=== PATIENT | female | born 1945 | race Caucasian/White ===

== ENCOUNTER → 2016-08-28 | Outpatient (CLI) | payer OTHER ==
[~2016-08-28] MED LIST: ADVIN25/60 INH; ALEN1TAB21 PO; ARM1 PO; ESCI1TAB10 PO; IPRA1AER2 INH
[2016-08-28 17:23] LABS: HEMATOCRIT 50.5 % (37-47); MEAN CELL VOLUME 100.4 fL (80-100); MEAN CORPUSCULAR HEMOGLOBIN 33.6 pg (25-34); MEAN CORPUSCULAR HGB CONC 33.5 g/dl (32-36); MEAN PLATELET VOLUME 11.5 fL (7.4-10.4); PLATELET COUNT 192 K/uL (130-400); RED BLOOD COUNT 5.03 M/uL (4.2-5.4); WHITE BLOOD COUNT 9.64 K/uL (4.8-10.8)
[2016-08-28 18:07] LABS: ALKALINE PHOSPHATASE 78 U/L (45-117); ALT/SGPT 44 U/L (12-78); AST/SGOT 51 U/L (15-37); BLOOD UREA NITROGEN 10 mg/dl (7-18); BUN/CREATININE RATIO 13.9 (10-20); CALCIUM 9.2 mg/dl (8.5-10.1); CARBON DIOXIDE 31 mmol/L (21-32); CHLORIDE 106 mmol/L (98-107); CREATININE 0.72 mg/dl (0.60-1.20); GLUCOSE 116 mg/dl (70-99); POTASSIUM 4.5 mmol/L (3.5-5.1); SODIUM 142 mmol/L (136-145)
[2016-08-28 18:13] LABS: ALB/GLOB RATIO 0.9 (0.9-2); CHOLESTEROL 205 mg/dl (0-200); CHOLESTEROL/HDL RATIO 3.4; HDL CHOLESTEROL 61 mg/dl; LDL CHOLESTEROL CALCULATED 112 mg/dl; TRIGLYCERIDES 158 mg/dl (0-150); VERY LOW DENSITY LIPOPROT CALC 32 mg/dl
== END | disposition home or self-care (01) ==
LOC: C.LABPVFM 14:52
PROVIDERS: ATTEND Family Medicine
DX: C50.919 Malignant neoplasm of unspecified site of unspecified female breast (principal); I10 Essential (primary) hypertension

== ENCOUNTER → 2016-08-29 | Outpatient (CLI) | payer OTHER ==
--- NOTE | 2016-08-29 10:51 | DIAGNOSTIC IMAGING REPORT ---
CHEST 2 VIEWS ROUTINE CLINICAL HISTORY: BREAST CA dyspnea COMPARISON STUDY: 05/14/2014 FINDINGS: Chronic elevation left hemidiaphragm. Mild stable cardiomegaly. Lungs are considered clear. IMPRESSION: Chronic change. No acute process. Electronically signed by: Rickey Boateng M.D. 08/29/2016 10:49 AM Dictated Date/Time: 08/29/2016 10:48 AM
== END | disposition home or self-care (01) ==
LOC: C.RAD 10:33
PROVIDERS: ATTEND Nurse Practitioner Family
DX: C50.919 Malignant neoplasm of unspecified site of unspecified female breast (principal); R73.09 Other abnormal glucose; D75.1 Secondary polycythemia

== ENCOUNTER → 2016-08-29 | Outpatient (CLI) | payer OTHER ==
[2016-08-29 18:24] LABS: TOTAL IRON BINDING CAPACITY 290 mcg/dl (250-450)
[2016-08-30 06:04] LABS: ESTIMATED AVERAGE GLUCOSE 111 mg/dl; HA1C FLAG Normal (Normal)
--- NOTE | 2016-09-12 10:36 | CODING QUERY MEDICAL NECESSITY ---
CQSUPPORTING DIAGNOSIS NEEDED A supporting diagnosis is required for the test/procedure performed on this patient in order for us to be reimbursed by the patient's insurance. Please provide a supporting diagnosis for the following test/procedure listed below next to the test name along with your signature. *If there is no additional diagnosis for this patient that would support the following test/procedure please document that below next to the test/procedure. Test(s)/Procedure(s) that require a supporting diagnosis: DOS 08/29/16 VITAMIN B12 Provider Signature: Date: Thank you Gabriela Ramos [facility] [employer] Once completed, please kindly fax back to [phone] For questions please call [phone]
== END | disposition home or self-care (01) ==
LOC: C.LABPVFM 14:38
PROVIDERS: ATTEND Family Medicine
DX: R73.09 Other abnormal glucose (principal); D75.1 Secondary polycythemia

== ENCOUNTER → 2016-11-30 | Outpatient (CLI) | payer OTHER ==
[~2016-11-30] MED LIST changes: +OPTIRAY 320 IV PRN
--- NOTE | 2016-11-30 09:17 | DIAGNOSTIC IMAGING REPORT ---
CT OF THE CHEST WITH IV CONTRAST CLINICAL HISTORY: Breast carcinoma COMPARISON STUDY: 10/05/2015 TECHNIQUE: Following the IV administration of 66 mL of Optiray-320, CT of the thorax was performed from the thoracic inlet to the lung bases. Images are reviewed in the axial, sagittal, and coronal planes. IV contrast was administered. There is a small contrast infiltrate.. A dose lowering technique was utilized adhering to the principles of ALARA. CT DOSE: 595.73 mGycm FINDINGS: Thyroid: Several right-sided thyroid nodules are visualized the largest of which measures 8 mm. Thoracic aorta: The thoracic aorta is normal in course and caliber, noting standard 3-vessel arch anatomy. No aneurysm or dissection is seen. Pulmonary vasculature: The pulmonary trunk is normal in caliber. There are no central filling defects identified to suggest pulmonary embolus. Note that this examination was not protocoled for the evaluation of pulmonary emboli. HEART: The heart is mildly enlarged. Lungs and pleural spaces: No pleural effusions are visualized. There is pulmonary emphysema. There are lingular atelectatic changes. There are increased subpleural markings within the left upper lobe possibly secondary to prior ration therapy. There is slight interstitial subpleural prominence within the right middle lobe. There is marked elevation left hemidiaphragm. Mediastinum: There is no mediastinal lymphadenopathy. Whit: Clear. Axilla: Clear. Upper abdomen: There is hepatic steatosis. There is a 43 mm left renal cyst. Skeletal structures: There are no lytic or blastic osseous lesions. IMPRESSION: Persistent elevation of the left hemidiaphragm. No evidence of intrathoracic metastasis. Electronically signed by: Macario Granados M.D. 11/30/2016 9:16 AM Dictated Date/Time: 11/30/2016 9:11 AM
== END | disposition home or self-care (01) ==
LOC: C.CTS 08:29
PROVIDERS: ATTEND Internal Medicine Hematology & Oncology
DX: C50.919 Malignant neoplasm of unspecified site of unspecified female breast (principal)

== ENCOUNTER 2017-04-09 14:32 | Inpatient (IN) | payer OTHER ==
[~2017-04-09] VITALS: Ht 157.5 cm; Wt 76.0 kg
[~2017-04-09 14:32] MED LIST changes: -OPTIRAY 320 IV PRN
[2017-04-09] MEDS ORDERED: SODIUM CHLORIDE 0.9% 1000ML 1,000 ML IV STA (14:51)
[2017-04-09] MEDS ORDERED: KETOROLAC TROMETHAMINE 30 MG/ML VIAL IV STA (14:51)
[2017-04-09 15:17] LABS: BASO % 0.3 %; BASO ABS # 0.04 K/uL (0-0.2); COMPLETE YES; EOS % 0.2 %; HEMATOCRIT 54.2 % (37-47); LYMPH % 8.3 %; LYMPH ABS # 1.19 K/uL (1.2-3.4); MEAN CELL VOLUME 97.5 fL (80-100); MEAN CORPUSCULAR HEMOGLOBIN 34.2 pg (25-34); MEAN CORPUSCULAR HGB CONC 35.1 g/dl (32-36); MONO % 9.4 %; NEUT % 80.8 %; PLATELET COUNT 149 K/uL (130-400); RED BLOOD COUNT 5.56 M/uL (4.2-5.4); WHITE BLOOD COUNT 14.33 K/uL (4.8-10.8)
[2017-04-09] MEDS ORDERED: ALEN70TA2 PO (15:27)
[2017-04-09 15:36] LABS: BUN/CREATININE RATIO 20.5 (10-20); CALCIUM 10.3 mg/dl (8.5-10.1); CREATININE 0.85 mg/dl (0.60-1.20); POTASSIUM 4.2 mmol/L (3.5-5.1)
--- NOTE | 2017-04-09 15:41 | DIAGNOSTIC IMAGING REPORT ---
HEAD WITHOUT CONTRAST (CT) CLINICAL HISTORY: 71 years-old Female presenting with fall. TECHNIQUE: Multidetector CT imaging of the head was performed without the use of intravenous contrast. IV contrast: None. A dose lowering technique was used consistent with the principles of ALARA (as low as reasonably achievable). COMPARISON: 02/17/2015. CT DOSE (mGy.cm): The estimated cumulative dose is 1660.55. FINDINGS: Recreational Therapist topogram: Unremarkable. Ventricles and sulci normal in size. Brain parenchyma normal in appearance with preserved fallon-white differentiation. No mass effect or midline shift. No hemorrhage or acute territorial infarct. No extra-axial fluid collection. Paranasal sinuses and mastoid air cells clear. Calvarium intact. IMPRESSION: 1. No acute intracranial abnormality. Electronically signed by: Wilfredo Hinkle M.D. 04/09/2017 3:40 PM Dictated Date/Time: 04/09/2017 3:39 PM
--- NOTE | 2017-04-09 15:46 | DIAGNOSTIC IMAGING REPORT ---
LUMBAR SPINE WITHOUT CLINICAL HISTORY: 71 years-old Female presenting with fall 2 days ago, increasing back pain. TECHNIQUE: Multidetector CT of the lumbar spine was performed without the use of intravenous contrast. IV contrast: None. A dose lowering technique was used consistent with the principles of ALARA (as low as reasonably achievable). COMPARISON: None. CT DOSE (mGy.cm): The estimated cumulative dose is 1660.55 mGy.cm. FINDINGS: Home Care Consultant topogram: Unremarkable. Osteopenia. Normal lumbar lordosis. Vertebral bodies maintain normal height and alignment. Height loss mild intervertebral disc height loss at L4-5 and L5-S1, where there are disc bulges. Disc bulge also noted at L2-3 and L3-4. No significant neural foraminal or spinal canal narrowing. Facet arthropathy noted in the lower lumbar spine. Impression deformity of T12 with abnormal concavity of both the superior and inferior endplate. Irregularity of the cortex along the anterior aspect of the superior endplate suspicious for a fracture. The presumed fracture plane does not extend to the posterior elements. No retropulsion of fracture fragments. Paraspinal soft tissues remarkable for atherosclerosis of the normal caliber abdominal aorta. IMPRESSION: 1. Fracture deformity of T12 in the setting of osteopenia. No retropulsion of fracture fragments. This is age indeterminate but suspected to be acute. Correlate for point tenderness. 2. Multilevel degenerative changes of lumbar spine without CT evidence of neural foraminal or spinal canal narrowing. Electronically signed by: Wilfredo Hinkle M.D. 04/09/2017 3:45 PM Dictated Date/Time: 04/09/2017 3:41 PM
--- NOTE | 2017-04-09 15:51 | DIAGNOSTIC IMAGING REPORT ---
PELVIS 1 OR 2 VIEW ROUTINE CLINICAL HISTORY: 71 years-old Female presenting with fall. TECHNIQUE: Single frontal view of the pelvis was obtained. COMPARISON: None. FINDINGS: Bony pelvis intact. Pubic symphysis and sacroiliac joints congruent. Hip joints congruent. No advanced degenerative change. Lower lumbar spine within normal limits. IMPRESSION: No acute osseous injury of the pelvis. Electronically signed by: Wilfredo Hinkle M.D. 04/09/2017 3:50 PM Dictated Date/Time: 04/09/2017 3:49 PM
--- NOTE | 2017-04-09 15:51 | DIAGNOSTIC IMAGING REPORT ---
CHEST ONE VIEW PORTABLE CLINICAL HISTORY: 71 years-old Female presenting with fall, history of breast carcinoma. TECHNIQUE: Portable upright AP view of the chest was obtained. COMPARISON: 08/29/[address] from 11/30/2016. FINDINGS: Vertex silhouette enlarged, unchanged. Chronic elevation of the left hemidiaphragm. Nodular opacities in the right lung increased from prior. No large pleural effusion or pneumothorax. Degenerative changes of the right glenohumeral joint. Upper abdomen normal. IMPRESSION: 1. Nodular opacities in the right lung could represent prominent pulmonary vasculature versus multifocal nodules. This is somewhat suspicious given the history of breast cancer. 2. Chronic elevation of the left hemidiaphragm. 3. Cardiomegaly. Electronically signed by: Wilfredo Hinkle M.D. 04/09/2017 3:49 PM Dictated Date/Time: 04/09/2017 3:47 PM
[2017-04-09] MEDS ORDERED: OXYCODONE/ACETAMINOPHEN 5-325 TAB PO STA (16:18)
[2017-04-09] MEDS ORDERED: POLYETHYLENE (MIRALAX) 17 GM PACK PO PRN (18:15)
[2017-04-09] MEDS ORDERED: IPRATROPIUM BROMIDE/ALBUTEROL respimat INH INH PRN (18:15)
[2017-04-09] MEDS ORDERED: MAGNESIUM HYDROXIDE SUSP 30 ML UDC PO PRN (18:15)
[2017-04-09] MEDS ORDERED: ONDANSETRON INJ 2 MG/ML 2 ML VIAL IV PRN (18:15)
[2017-04-09] MEDS ORDERED: ACETAMINOPHEN 325 MG TAB PO PRN (18:15)
--- NOTE | 2017-04-09 18:19 | History and Physical ---
History & Physical Date & Time of Service: Apr 09, 2017 at 18:16 Chief Complaint: Back Pain From Fall Primary Care Physician: Wilfredo Kaplan M.D. History of Present Illness Source: patient Ms. 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 Patient reports she was walking to her bed and thought she was leaning against the foot of the bed but instead it was a shoe rack and she fell over hitting her left side. She continues to experience low back pain and is finding it difficult to ambulate. Due to this pain she has barely eaten over the past 2 days. She states she does have a cane that she ambulates with when outside the home but typically does not need to use this at home. She did strike the left side of her head but denies loss of consciousness. She states she was not on the floor very long. She denies any recent illnesses, dizziness/ lightheadedness, or any other pains/injuries. Imaging supports a T12 fracture. She follows with her PCP and has had DEXA scans in the past. Past Medical/Surgical History 1. 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 Breast CA S/P B/L Simple Mastectomy 3. HTN 4. Secondary Polycythemia Family History Hypertension Social History Smoking Status: Former Smoker Smokeless Tobacco Use: No Alcohol Use: none Drug Use: none Marital Status: Occupational Status: retired Multi-Drug Resistant Organisms History of MDRO: No Allergies Coded Allergies: No Known Allergies (Verified , 04/09/17) Home Medications Scheduled Alendronate Sodium (Fosamax), 70 MG PO WK Anastrozole (Anastrozole), 1 TAB PO DAILY Escitalopram Oxalate (Lexapro), 30 MG PO DAILY Fluticasone Prop/Salmeterol (Advair Diskus 250/50 60 Dose), 1 PUFF INH BID Scheduled PRN Ipratropium-Albuterol (Combivent Respimat), 2 PUFFS INH Q4 PRN for SOB/Wheezing Review of Systems Constitutional: No fever, No chills, No weakness ENT: No nasal symptoms, No sore throat Respiratory: No shortness of breath Cardiovascular: No chest pain Abdomen: No pain, No nausea, No vomiting, No diarrhea, No constipation Musculoskeletal: + joint pain (low back pain), No calf pain Genitourinary - Female: No dysuria Neurologic: + balance problems Hematologic / Lymphatic: No abnormal bleeding/bruising Integumentary: No rash Physical Exam Vital Signs Date Time Temp Pulse Resp B/P (MAP) Pulse Ox O2 Delivery O2 Flow Rate FiO2 04/09/17 17:44 138/76 04/09/17 14:35 36.6 95 22 96 Room Air General Appearance: WD/WN, no apparent distress Head: normocephalic, atraumatic Eyes: sclerae normal ENT: hearing grossly normal Neck: supple, no JVD, trachea midline Respiratory/Chest: lungs clear, normal breath sounds, no respiratory distress, no accessory muscle use Cardiovascular: regular rate, rhythm, no gallop, no murmur Abdomen/GI: normal bowel sounds, non tender, soft Extremities/Musculoskelatal: no calf tenderness, no pedal edema Neurologic/Psych: alert, oriented x 3 Skin: normal color, warm/dry Diagnostics Laboratory Results Results Past 24 Hours Test 04/09/17 15:05 Range/Units White Blood Count 14.33 4.8-10.8 K/uL Red Blood Count 5.56 4.2-5.4 M/uL Hemoglobin 19.0 12.0-16.0 g/dL Hematocrit 54.2 37-47 % Mean Corpuscular Volume 97.5 80-100 fL Mean Corpuscular Hemoglobin 34.2 25-34 pg Mean Corpuscular Hemoglobin Concent 35.1 32-36 g/dl Platelet Count 149 130-400 K/uL Mean Platelet Volume 11.0 7.4-10.4 fL Neutrophils (%) (Auto) 80.8 % Lymphocytes (%) (Auto) 8.3 % Monocytes (%) (Auto) 9.4 % Eosinophils (%) (Auto) 0.2 % Basophils (%) (Auto) 0.3 % Neutrophils # (Auto) 11.59 1.4-6.5 K/uL Lymphocytes # (Auto) 1.19 1.2-3.4 K/uL Monocytes # (Auto) 1.34 0.11-0.59 K/uL Eosinophils # (Auto) 0.03 0-0.5 K/uL Basophils # (Auto) 0.04 0-0.2 K/uL RDW Standard Deviation 47.8 36.4-46.3 fL RDW Coefficient of Variation 13.5 11.5-14.5 % Immature Granulocyte % (Auto) 1.0 % Immature Granulocyte # (Auto) 0.14 0.00-0.02 K/uL Sodium Level 132 136-145 mmol/L Potassium Level 4.2 3.5-5.1 mmol/L Chloride Level 98 98-107 mmol/L Carbon Dioxide Level 30 21-32 mmol/L Anion Gap 4.0 3-11 mmol/L Blood Urea Nitrogen 18 7-18 mg/dl Creatinine 0.85 0.60-1.20 mg/dl Est Creatinine Clear Calc Drug Dose 58.8 ml/min Estimated GFR () 80.5 Estimated GFR (Non- 69.4 BUN/Creatinine Ratio 20.5 10-20 Random Glucose 102 70-99 mg/dl Calcium Level 10.3 8.5-10.1 mg/dl Diagnostic Radiology LUMBAR SPINE WITHOUT FINDINGS: Pick Pulling Machine Tender topogram: Unremarkable. Osteopenia. Normal lumbar lordosis. Vertebral bodies maintain normal height and alignment. Height loss mild intervertebral disc height loss at L4-5 and L5-S1, where there are disc bulges. Disc bulge also noted at L2-3 and L3-4. No significant neural foraminal or spinal canal narrowing. Facet arthropathy noted in the lower lumbar spine. Impression deformity of T12 with abnormal concavity of both the superior and inferior endplate. Irregularity of the cortex along the anterior aspect of the superior endplate suspicious for a fracture. The presumed fracture plane does not extend to the posterior elements. No retropulsion of fracture fragments. Paraspinal soft tissues remarkable for atherosclerosis of the normal caliber abdominal aorta. IMPRESSION: 1. Fracture deformity of T12 in the setting of osteopenia. No retropulsion of fracture fragments. This is age indeterminate but suspected to be acute. Correlate for point tenderness. 2. Multilevel degenerative changes of lumbar spine without CT evidence of neural foraminal or spinal canal narrowing. Impression Assessment and Plan Ms. 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: - Advair 1 puff BID and Combivent 2 puffs Q4H PRN H/O Breast CA S/P B/L Simple Mastectomy - CXR with nodular opacities - review of outpatient records show she had a CT in Nov 2016 that notes the thyroid nodules and did mention R lobe prominences - recommend F/U CXR - Arimidex 1 mg daily DVT Prophylaxis: Heparin 5000 units Q12H Code Status: FULL RESUSCITATION Disposition: - PT/OT evaluations - patient's first recommendation would be to go to [facility] - phlebotomy services technician - appreciate assistance with rehabilitation placement I personally interviewed and examined the patient. I agree with history of present illness and physical exam mentioned above, I also performed my own history taking and examination. Past medical history and review of system has been obtained by myself I reviewed all pertinent labs and studies Reviewed current medications I discussed and formulated of the assessment and plan mentioned above. Please refer to the Summary mentioned below. Agree With Miss. Aguilar's plan General Appearance: not in acute distress Eyes: normal Sclerae, extraocular muscle intact ENT: hearing grossly normal Neck: supple Respiratory/Chest: normal air entry bilateral ,no severe respiratory distress, no accessory muscle use, currently she is comfortable on room air Cardiovascular: regular rate, rhythm, no murmur Abdomen: non tender, soft, no masses Extremities: no edema Neurologic/Psychiatric: Awake alert oriented times place and person moves all extremities sensation intact cranial nerves II-12 appear to be intact Skin: normal color, warm/dry, no rash 71 years old female who had a mechanical fall today resulted in T12 fracture with back pain On presentation she was found to have leukocytosis, elevated hemoglobin and elevated calcium parameters indicating dehydration Other than that she is asymptomatic except for back pain Assessment mechanical fall T12 fracture intractable lower back pain osteopenia plan: continune supportive care pain management gentle IVF hydration (recheck calcium and and Hgb in am) ortho consult for potential vertebroplasty PT/OT after ortho clearance Vit D supplement Pina Ellis [facility], [facility] Level of Care Med/Surg Resuscitation Status FULL RESUSCITATION VTE Prophylaxis VTE Risk Assessment Done? Y/N: Yes Risk Level: Moderate Given or contraindicated: T.E.D. Stockings, SCD's
[2017-04-09] MEDS ORDERED: KETOROLAC TROMETHAMINE 15 MG/ML VIAL IV PRN (18:30)
[2017-04-09] MEDS ORDERED: MoRPHine SULFATE 2 MG/ML CARP IV PRN (18:30)
[2017-04-09] MEDS ORDERED: SODIUM CHLORIDE 0.9% 1000ML 1,000 ML IV SCH (18:45)
[2017-04-09] MEDS ORDERED: TRAMADOL HCL 50 MG TAB PO PRN (19:00)
[2017-04-09] MEDS ORDERED: ERGOCALCIFEROL 50,000 INTER.UNIT CAP PO SCH (19:00)
[2017-04-09 19:35] VITALS: BP 119/61; PULSE 75; TEMP 36.8; O2SAT 95; Ht 157.5 cm; Wt 76.0 kg
[2017-04-09 21:02] LABS: PARTIAL THROMBOPLASTIN RATIO 1.1; PROTHROMBIN TIME (PATIENT) 10.6 SECONDS (9.0-12.0)
[2017-04-09] MEDS: FLUTICASONE/SALMETEROL 250/50 (ADVAIR) 14 PUFF/1 INHALER INH SCH (21:32)
[2017-04-09 21:47] LABS: URINE APPEARANCE CLEAR (CLEAR); URINE COLOR DK YELLOW; URINE EPITHELIAL CELL AUTO >30 /lpf (0-5); URINE NITRITE NEG (NEG); URINE SPECIFIC GRAVITY 1.021 (1.000-1.030); UROBILINOGEN NEG (NEG); ZZUR CULT IF INDIC CLEAN CATCH NO
[2017-04-09 21:48] LABS: MANUAL MICROSCOPIC REQUIRED? NO; REVIEW REQ? YES; URINE BILIRUBIN NEG (NEG)
[2017-04-09] MEDS: HEPARIN SOD 5000 UNIT/0.5 ML CARP SQ SCH (22:16)
[2017-04-09] MEDS: OXYCODONE/ACETAMINOPHEN 5-325 TAB PO PRN (22:25)
[2017-04-09 23:20] VITALS: BP 132/70; PULSE 74; TEMP 36.8; O2SAT 96
[2017-04-10] VITALS (7 sets, daily range): BP systolic 78–137; BP diastolic 50–91; PULSE 74–80; TEMP 36.6–36.8; O2SAT 86–96
[2017-04-10 06:04] LABS: BASO % 0.5 %; BASO ABS # 0.06 K/uL (0-0.2); COMPLETE YES; EOS % 2.6 %; HEMATOCRIT 48.6 % (37-47); LYMPH % 23.5 %; LYMPH ABS # 2.76 K/uL (1.2-3.4); MEAN CORPUSCULAR HEMOGLOBIN 33.5 pg (25-34); MEAN CORPUSCULAR HGB CONC 33.1 g/dl (32-36); MEAN PLATELET VOLUME 11.1 fL (7.4-10.4); MONO % 8.1 %; NEUT % 64.3 %; PLATELET COUNT 136 K/uL (130-400); RED BLOOD COUNT 4.81 M/uL (4.2-5.4); WHITE BLOOD COUNT 11.76 K/uL (4.8-10.8)
[2017-04-10 06:19] LABS: ALB/GLOB RATIO 0.8 (0.9-2); BUN/CREATININE RATIO 28.1 (10-20); CALCIUM 8.7 mg/dl (8.5-10.1); CREATININE 0.99 mg/dl (0.60-1.20); POTASSIUM 3.6 mmol/L (3.5-5.1)
[2017-04-10] MEDS: OXYCODONE/ACETAMINOPHEN 5-325 TAB PO PRN ×2 (07:33→15:35)
[2017-04-10] MEDS: ANASTROZOLE 1 MG TAB PO SCH (08:51)
[2017-04-10] MEDS: ESCITALOPRAM OXALATE 20 MG TAB PO SCH (08:51)
[2017-04-10] MEDS: FLUTICASONE/SALMETEROL 250/50 (ADVAIR) 14 PUFF/1 INHALER INH SCH ×2 (08:52→20:48)
[2017-04-10] MEDS: CALCIUM CARBONATE 500 MG CHEWABLE PO SCH (08:52)
[2017-04-10] MEDS: HEPARIN SOD 5000 UNIT/0.5 ML CARP SQ SCH ×2 (09:56→21:33)
--- NOTE | 2017-04-10 13:08 | DIAGNOSTIC IMAGING REPORT ---
CHEST ONE VIEW PORTABLE CLINICAL HISTORY: hypoxia dyspnea COMPARISON STUDY: 04/09/2017 FINDINGS: Chronic elevation left hemidiaphragm unchanged. Moderate stable cardiomegaly. Mild platelike atelectasis left base unchanged. Slight prominence pulmonary vasculature. Subtle nodularity right hemithorax is similar. IMPRESSION: Chronic change. Stable cardiomegaly. Mild pulmonary vascular congestion. The above report was generated using voice recognition software. It may contain grammatical, syntax or spelling errors. Electronically signed by: Rickey Boateng M.D. 04/10/2017 1:07 PM Dictated Date/Time: 04/10/2017 1:06 PM
[2017-04-10] MEDS: ALUMINUM/MAGNESIUM/SIMETH (MAALOX MAX) 30 ML UDC PO PRN (14:26)
--- NOTE | 2017-04-10 14:42 | Hospitalist Progress Note ---
Hospitalist Progress Note Date of Service Apr 10, 2017. (Daisy Puente ., CAROLYNC) Subjective Pt evaluation today including: conversation w/ patient, physical exam, chart review, lab review, review of studies, review of inpatient medication list Pain: 5/10 dull back pain PO Intake: Tolerating PO diet Voiding: no voiding problems The patient complains of a 5/10 dull back pain but is otherwise feeling well. The pain stays right in her back and does not radiate. The pain is exacerbated by certain movements, changes in position and palpation. She denies any numbness/tingling or incontinence. The patient denies fevers, chills, sweats, chest pain, palpitations, claudication, cough, wheezing, shortness of breath, nausea, vomiting, abdominal pain, dysuria, hematuria, urinary retention, paralysis, weakness, numbness and tingling. Additional Comments: See HPI for pertinent positives and negatives. All other systems reviewed and negative. (Daisy Puente PA-C) Objective Vital Signs Date Time Temp Pulse Resp B/P (MAP) Pulse Ox O2 Delivery O2 Flow Rate FiO2 04/10/17 13:28 93 04/10/17 08:53 93 Nasal Cannula 3.0 04/10/17 08:50 86 Room Air 04/10/17 07:20 Nasal Cannula 2.0 04/10/17 07:11 36.6 74 20 113/61 (78) 96 Nasal Cannula 2.0 04/09/17 23:40 Nasal Cannula 2.0 04/09/17 23:20 36.8 74 16 132/70 (90) 96 Nasal Cannula 2.0 04/09/17 19:35 92 20 129/70 96 04/09/17 19:35 95 Nasal Cannula 2.0 04/09/17 19:35 36.8 75 19 119/61 (80) 95 Nasal Cannula 2.0 04/09/17 17:44 138/76 04/09/17 14:35 36.6 95 22 96 Room Air (Daisy Puente ., CAROLYNC) Physical Exam Notes: General appearance: +Obese. Well-developed, well-nourished, no apparent distress Head: Normocephalic, atraumatic Eyes: Normal inspection, PERRL, EOMI ENT: Normal ENT inspection, hearing grossly normal, pharynx normal Neck: Supple, no JVD, trachea midline Respiratory/Chest: +Absent lung sounds left base--pt has chronically elevated left hemidiaphragm. Lungs clear to auscultation, normal breath sounds, no respiratory distress Cardiovascular: Regular rate & rhythm, no gallop, no murmur Abdomen/GI: Normal bowel sounds, non-tender, soft Extremities/Musculoskeletal: +Spinous process at T12 TTP, milder paraspinal tenderness. Normal inspection, no calf tenderness, no pedal edema Neurological/Psych: Alert, normal mood/affect, oriented x 3 Skin: Normal color, warm/dry, no rash (Daisy Puente, AQUILES) Laboratory Results Last 24 Hours Test 04/09/17 15:05 04/09/17 21:28 04/10/17 05:16 White Blood Count 14.33 K/uL 11.76 K/uL Red Blood Count 5.56 M/uL 4.81 M/uL Hemoglobin 19.0 g/dL 16.1 g/dL Hematocrit 54.2 % 48.6 % Mean Corpuscular Volume 97.5 fL 101.0 fL Mean Corpuscular Hemoglobin 34.2 pg 33.5 pg Mean Corpuscular Hemoglobin Concent 35.1 g/dl 33.1 g/dl Platelet Count 149 K/uL 136 K/uL Mean Platelet Volume 11.0 fL 11.1 fL Neutrophils (%) (Auto) 80.8 % 64.3 % Lymphocytes (%) (Auto) 8.3 % 23.5 % Monocytes (%) (Auto) 9.4 % 8.1 % Eosinophils (%) (Auto) 0.2 % 2.6 % Basophils (%) (Auto) 0.3 % 0.5 % Neutrophils # (Auto) 11.59 K/uL 7.56 K/uL Lymphocytes # (Auto) 1.19 K/uL 2.76 K/uL Monocytes # (Auto) 1.34 K/uL 0.95 K/uL Eosinophils # (Auto) 0.03 K/uL 0.31 K/uL Basophils # (Auto) 0.04 K/uL 0.06 K/uL RDW Standard Deviation 47.8 fL 50.5 fL RDW Coefficient of Variation 13.5 % 13.6 % Immature Granulocyte % (Auto) 1.0 % 1.0 % Immature Granulocyte # (Auto) 0.14 K/uL 0.12 K/uL Prothrombin Time 10.6 SECONDS Prothromb Time International Ratio 1.0 Activated Partial Thromboplast Time 27.6 SECONDS Partial Thromboplastin Ratio 1.1 Sodium Level 132 mmol/L 135 mmol/L Potassium Level 4.2 mmol/L 3.6 mmol/L Chloride Level 98 mmol/L 100 mmol/L Carbon Dioxide Level 30 mmol/L 29 mmol/L Anion Gap 4.0 mmol/L 6.0 mmol/L Blood Urea Nitrogen 18 mg/dl 28 mg/dl Creatinine 0.85 mg/dl 0.99 mg/dl Est Creatinine Clear Calc Drug Dose 58.8 ml/min 50.5 ml/min Estimated GFR () 80.5 66.9 Estimated GFR (Non- 69.4 57.7 BUN/Creatinine Ratio 20.5 28.1 Random Glucose 102 mg/dl 96 mg/dl Calcium Level 10.3 mg/dl 8.7 mg/dl Urine Color DK YELLOW Urine Appearance CLEAR Urine pH 5.0 Urine Specific [place] 1.021 Urine Protein TRACE Urine Glucose (UA) NEG Urine Ketones TRACE Urine Occult Blood NEG Urine Nitrite NEG Urine Bilirubin NEG Urine Urobilinogen NEG Urine Leukocyte Esterase SMALL Urine WBC (Auto) 5-10 /hpf Urine RBC (Auto) 0-4 /hpf Urine Hyaline Casts (Auto) 5-10 /lpf Urine Epithelial Cells (Auto) >30 /lpf Urine Bacteria (Auto) NEG Urine Pathogenic Casts /lpf Magnesium Level 2.0 mg/dl Total Bilirubin 1.0 mg/dl Aspartate Amino Transf (AST/SGOT) 36 U/L Alanine Aminotransferase (ALT/SGPT) 32 U/L Alkaline Phosphatase 71 U/L Total Protein 6.8 gm/dl Albumin 3.0 gm/dl Globulin 3.8 gm/dl Albumin/Globulin Ratio 0.8 (Daisy Puente ., PA-C) Diagnostic Results Reviewed the following studies and agree with interpretation as follows: CHEST ONE VIEW PORTABLE CLINICAL HISTORY: hypoxia dyspnea COMPARISON STUDY: 04/09/2017 FINDINGS: Chronic elevation left hemidiaphragm unchanged. Moderate stable cardiomegaly. Mild platelike atelectasis left base unchanged. Slight prominence pulmonary vasculature. Subtle nodularity right hemithorax is similar. IMPRESSION: Chronic change. Stable cardiomegaly. Mild pulmonary vascular congestion. 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 T12 fracture following fall, ambulatory dysfunction--ongoing - Admit to med/surg - Pain management with Ultram, Percocet, and Morphine prn. Pt states pain is manageable, awake/alert - Consult Spine - suspect conservative management but appreciate input, awaiting recs - Consult Orthotics - likely need for back brace - PT/OT evaluate and treat. Recommend rehab, pt's first choice [facility] Hypoxia -Pt down to 86% on room air. Does not wear oxygen at home -Repeat CXR shows mild pulmonary vascular congestion -Pt clinically appears dry, BUN increased from 18 to 28, producing little urine -Give NSS at 80 cc/hr x 1 liter, reassess -Continuous pulse ox Secondary Polycythemia--improving - Patient was unaware of this - was a previous smoker and may be related to Arimidex - Hgb 16 on 04/10, down from 19 Diaphragmatic Paralysis 2/ Radiation Therapy: - Advair 1 puff BID and Combivent 2 puffs Q4H PRN H/O Breast CA S/P B/L Simple Mastectomy - CXR with nodular opacities - review of outpatient records show she had a CT in Nov 2016 that notes the thyroid nodules and did mention R lobe prominences - recommend F/U CXR - Arimidex 1 mg daily DVT Prophylaxis -Heparin 5000 units Q12H Code Status -Level I, FULL RESUSCITATION STATUS Disposition: - Case management following, will need rehab (Daisy Puente ., CAROLYNC) PA Physician Supervision Note: I interviewed and examined the patient. Discussed with Daisy Puente PAC and agree with findings and plan as documented in the note. Any exceptions or clarifications are listed here: None Patient is here with a T12 compression fracture for pain control she did have some episodes of hypoxia and she does have an abnormal chest x-ray with what appears to be a large hiatal hernia with most of her stomach contents in her left chest and her cardiac silhouette being displaced to the right towards her right chest. She appears clinically dry. The patient is aware of her abnormal chest x-rays this been present for some time she is not however had a history of having hypoxic issues with it. Her pain is manageable and orthotics as supplied a Girdle style brace Vitals are stable exam shows her back to be not point tender to exam it is uncomfortable to move her cardiac exam is regular her lungs of decreased breath sounds are absent breath signs of the left side otherwise reasonable movement T12 compression fracture with pain control patient is doing fairly well with occasional use of Percocet patient and family are seeking subacute rehabilitation Documented By: Babar Hernandez (Babar Hernandez M.D.)
[2017-04-10] MEDS ORDERED: SODIUM CHLORIDE 0.9% 1000ML 1,000 ML IV SCH (14:45)
--- NOTE | 2017-04-10 19:47 | EMERGENCY ROOM VISIT NOTE ---
History Report prepared by Alicia: Dane Marinelli Under the Supervision of: Dr. Maxx Kaur D.O. First contact with patient: 14:46 Chief Complaint: FALL Stated Complaint: BACK PAIN FROM FALL History of Present Illness The patient is a 71 year old female who presents to the Emergency Room with complaints of falling 2 days ago due to a loss of balance. The patient reports she fell in her bedroom on the left side of her head. The patient states it is difficult to ambulate due to the low back pain s/p fall. The patient's daughter states the patient has had limited dietary intake. The patient denies headache, loss of consciousness, fevers, chills, shortness of breath, chest pain, and abdominal pain. The patient denies taking any pain medication or blood thinners. Source of History: patient, family Onset: 2 days ago Position: head, back (lower) Timing: constant Modifying Factors (Worsening): movement Associated Symptoms: + back pain, No LOC, No fevers, No chills, No headache , No chest pain, No SOB, No abdominal pain Note: Pt reports limited dietary intake. Review of Systems See HPI for pertinent positives & negatives. A total of 10 systems reviewed and were otherwise negative. 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 (3) Leukocytosis (4) Mechanical Fall (5) T12 Fracture Surgical Problems: (1) H/O lumpectomy (2) H/O mastectomy Family History Hypertension Social History Smoking Status: Former Smoker Drug Use: none Marital Status: Occupation Status: retired Current/Historical Medications Scheduled Alendronate Sodium (Fosamax), 70 MG PO WK Anastrozole (Anastrozole), 1 TAB PO DAILY Escitalopram Oxalate (Lexapro), 30 MG PO DAILY Fluticasone Prop/Salmeterol (Advair Diskus 250/50 60 Dose), 1 PUFF INH BID Scheduled PRN Ipratropium-Albuterol (Combivent Respimat), 2 PUFFS INH Q4 PRN for SOB/Wheezing Allergies Coded Allergies: No Known Allergies (Verified , 04/09/17) Physical Exam Vital Signs Date Time Temp Pulse Resp B/P (MAP) Pulse Ox O2 Delivery O2 Flow Rate FiO2 04/09/17 17:44 138/76 04/09/17 14:35 36.6 95 22 96 Room Air Physical Exam CONSTITUTIONAL/VITAL SIGNS: Reviewed / noted above. GENERAL: Non-toxic in appearance. INTEGUMENTARY: Warm, dry, and [place]. HEAD: Normocephalic. EYES: without scleral icterus or trauma. ENT/OROPHARYNX: clear and moist. LYMPHADENOPATHY/NECK: Is supple without lymphadenopathy or meningismus. RESPIRATORY: Lungs clear and equal. CARDIOVASCULAR: Regular rate and rhythm. GI/ABDOMEN: Soft and nontender. No organomegaly or pulsatile mass. No rebound or guarding. Normal bowel sounds. EXTREMITIES: Warm and well perfused. BACK: No CVA tenderness; low back pain with movement; region of ecchymosis in left lower back. NEUROLOGICAL: Intact without focal deficits. PSYCHIATRIC: normal affect. MUSCULOSKELETAL: Normally developed with good muscle tone. Medical Decision & Procedures ER Provider Diagnostic Interpretation: Radiology results as stated below per my review and radiologist interpretation: LUMBAR SPINE WITHOUT CLINICAL HISTORY: 71 years-old Female presenting with fall 2 days ago, increasing back pain. TECHNIQUE: Multidetector CT of the lumbar spine was performed without the use of intravenous contrast. IV contrast: None. A dose lowering technique was used consistent with the principles of ALARA (as low as reasonably achievable). COMPARISON: None. CT DOSE (mGy.cm): The estimated cumulative dose is 1660.55 mGy.cm. FINDINGS: Fireproof Door Maker topogram: Unremarkable. Osteopenia. Normal lumbar lordosis. Vertebral bodies maintain normal height and alignment. Height loss mild intervertebral disc height loss at L4-5 and L5-S1, where there are disc bulges. Disc bulge also noted at L2-3 and L3-4. No significant neural foraminal or spinal canal narrowing. Facet arthropathy noted in the lower lumbar spine. Impression deformity of T12 with abnormal concavity of both the superior and inferior endplate. Irregularity of the cortex along the anterior aspect of the superior endplate suspicious for a fracture. The presumed fracture plane does not extend to the posterior elements. No retropulsion of fracture fragments. Paraspinal soft tissues remarkable for atherosclerosis of the normal caliber abdominal aorta. IMPRESSION: 1. Fracture deformity of T12 in the setting of osteopenia. No retropulsion of fracture fragments. This is age indeterminate but suspected to be acute. Correlate for point tenderness. 2. Multilevel degenerative changes of lumbar spine without CT evidence of neural foraminal or spinal canal narrowing. Electronically signed by: Wilfredo Hinkle M.D. 04/09/2017 3:45 PM Dictated Date/Time: 04/09/2017 3:41 PM HEAD WITHOUT CONTRAST (CT) CLINICAL HISTORY: 71 years-old Female presenting with fall. TECHNIQUE: Multidetector CT imaging of the head was performed without the use of intravenous contrast. IV contrast: None. A dose lowering technique was used consistent with the principles of ALARA (as low as reasonably achievable). COMPARISON: 02/17/2015. CT DOSE (mGy.cm): The estimated cumulative dose is 1660.55. FINDINGS: Fireproof Door Maker topogram: Unremarkable. Ventricles and sulci normal in size. Brain parenchyma normal in appearance with preserved fallon-white differentiation. No mass effect or midline shift. No hemorrhage or acute territorial infarct. No extra-axial fluid collection. Paranasal sinuses and mastoid air cells clear. Calvarium intact. IMPRESSION: 1. No acute intracranial abnormality. Electronically signed by: Wilfredo Hinkle M.D. 04/09/2017 3:40 PM Dictated Date/Time: 04/09/2017 3:39 PM PELVIS 1 OR 2 VIEW ROUTINE CLINICAL HISTORY: 71 years-old Female presenting with fall. TECHNIQUE: Single frontal view of the pelvis was obtained. COMPARISON: None. FINDINGS: Bony pelvis intact. Pubic symphysis and sacroiliac joints congruent. Hip joints congruent. No advanced degenerative change. Lower lumbar spine within normal limits. IMPRESSION: No acute osseous injury of the pelvis. Electronically signed by: Wilfredo Hinkle M.D. 04/09/2017 3:50 PM Dictated Date/Time: 04/09/2017 3:49 PM CHEST ONE VIEW PORTABLE CLINICAL HISTORY: 71 years-old Female presenting with fall, history of breast carcinoma. TECHNIQUE: Portable upright AP view of the chest was obtained. COMPARISON: 08/29/[address] from 11/30/2016. FINDINGS: Vertex silhouette enlarged, unchanged. Chronic elevation of the left hemidiaphragm. Nodular opacities in the right lung increased from prior. No large pleural effusion or pneumothorax. Degenerative changes of the right glenohumeral joint. Upper abdomen normal. IMPRESSION: 1. Nodular opacities in the right lung could represent prominent pulmonary vasculature versus multifocal nodules. This is somewhat suspicious given the history of breast cancer. 2. Chronic elevation of the left hemidiaphragm. 3. Cardiomegaly. Electronically signed by: Wilfredo Hinkle M.D. 04/09/2017 3:49 PM Dictated Date/Time: 04/09/2017 3:47 PM Laboratory Results Test 04/09/17 15:05 Prothrombin Time 10.6 SECONDS (9.0-12.0) Prothromb Time International Ratio 1.0 (0.9-1.1) Activated Partial Thromboplast Time 27.6 SECONDS (21.0-31.0) Partial Thromboplastin Ratio 1.1 Laboratory results as stated above per my review. Medications Administered Medications (Trade) Dose Ordered Sig/Donell Route Start Time Stop Time Status Last Admin Dose Admin Sodium Chloride 1,000 ml @ 999 mls/hr Q1H1M STAT IV 04/09/17 14:51 04/09/17 15:51 DC 04/09/17 15:14 999 MLS/HR Ketorolac Tromethamine (Toradol Inj) 30 mg NOW STAT IV 04/09/17 14:51 04/09/17 14:55 DC 04/09/17 15:15 30 MG Oxycodone/ Acetaminophen (Percocet 5-325mg Tab) 2 tab NOW STAT PO 04/09/17 16:18 04/09/17 16:19 DC 04/09/17 16:26 2 TAB ED Course 1446: Previous medical records were reviewed. The patient was evaluated in room B12. A complete history and physical examination was performed. 1451: Toradol Inj, 30 mg IV; Sodium Chloride 1000 ml @ 999 mls/hr IV. 1618: Percocet 5-325 mg tab, 2 tab PO. 1619: I spoke with the patient about rehabilitation options and she is open to going to [facility]. 1622: I discussed the patient's case at length with the supportive employment case manager and Dr. Pino. 1810: On reevaluation, the patient is doing well. I discussed the results and findings with the patient. She verbalized agreement of the treatment plan. I spoke with Dr. Pino of the [facility]. The patient will be evaluated for further management and care. Medical Decision Differential includes close head injury, intracranial bleed, facial trauma, cervical spine trauma, chest and thoracic trauma, abdominal and intra-abdominal trauma, spine neurologic trauma, extremity trauma. Medication Reconcilliation Current Medication List: was personally reviewed by me Impression Primary Impression: Fall Additional Impression: T12 Fracture Scribe Attestation The scribe's documentation has been prepared under my direction and personally reviewed by me in its entirety. I confirm that the note above accurately reflects all work, treatment, procedures, and medical decision making performed by me. Departure Information Dispostion Admitted as an inpatient Referrals Wilfredo Kaplan M.D. (PCP) Patient Instructions My [facility] Problem Qualifiers
[2017-04-11] VITALS (7 sets, daily range): BP systolic 156–169; BP diastolic 68–95; PULSE 77–89; TEMP 36.6–36.8; O2SAT 88–94
[2017-04-11] MEDS: OXYCODONE/ACETAMINOPHEN 5-325 TAB PO PRN ×2 (01:38→08:45)
[2017-04-11 06:51] LABS: HEMATOCRIT 48.1 % (37-47); MEAN CELL VOLUME 102.1 fL (80-100); MEAN CORPUSCULAR HEMOGLOBIN 33.5 pg (25-34); MEAN CORPUSCULAR HGB CONC 32.8 g/dl (32-36); MEAN PLATELET VOLUME 10.9 fL (7.4-10.4); PLATELET COUNT 136 K/uL (130-400); RED BLOOD COUNT 4.71 M/uL (4.2-5.4); WHITE BLOOD COUNT 9.76 K/uL (4.8-10.8)
[2017-04-11 07:28] LABS: BUN/CREATININE RATIO 29.6 (10-20); CALCIUM 9.2 mg/dl (8.5-10.1); CREATININE 0.68 mg/dl (0.60-1.20); POTASSIUM 3.9 mmol/L (3.5-5.1)
[2017-04-11] MEDS ORDERED: COUGH DROP (SUGAR FREE) LOZ 24 LOZ/1 BOX PO PRN (08:15)
[2017-04-11] MEDS ORDERED: NURSING DECISION MEDICATION ORDER SCH (08:15)
[2017-04-11] MEDS: CALCIUM CARBONATE 500 MG CHEWABLE PO SCH (08:41)
[2017-04-11] MEDS: FLUTICASONE/SALMETEROL 250/50 (ADVAIR) 14 PUFF/1 INHALER INH SCH ×2 (08:41→20:11)
[2017-04-11] MEDS: ESCITALOPRAM OXALATE 20 MG TAB PO SCH (08:41)
[2017-04-11] MEDS: ANASTROZOLE 1 MG TAB PO SCH (08:44)
[2017-04-11] MEDS: HEPARIN SOD 5000 UNIT/0.5 ML CARP SQ SCH ×2 (10:13→22:06)
--- NOTE | 2017-04-11 11:33 | Hospitalist Progress Note ---
Hospitalist Progress Note Date of Service Apr 11, 2017. (Daisy Puente ., CAROLYNC) Subjective Pt evaluation today including: conversation w/ patient, physical exam, chart review, lab review, review of inpatient medication list Pain: 3/10 dull back pain PO Intake: Tolerating PO diet Voiding: no voiding problems Patient reports feeling better. Her back pain is improved to a 3/10 dull pain. The pain does not radiate. She thinks she is urinating a little more today and feels less dehydrated. She denies any shortness of breath, currently on 1L NC. The patient denies fevers, chills, sweats, chest pain, palpitations, claudication, cough, wheezing, shortness of breath, nausea, vomiting, abdominal pain, dysuria, hematuria, urinary retention, paralysis, weakness, numbness and tingling. Additional Comments: See HPI for pertinent positives and negatives. All other systems reviewed and negative. (Daisy Puente ., PA-C) Objective Vital Signs Date Time Temp Pulse Resp B/P (MAP) Pulse Ox O2 Delivery O2 Flow Rate FiO2 04/11/17 08:50 93 Nasal Cannula 1.0 04/11/17 08:49 89 Room Air 04/11/17 07:25 36.7 77 16 156/76 (102) 94 Nasal Cannula 2.0 04/11/17 07:10 Nasal Cannula 2.0 04/10/17 23:35 Nasal Cannula 2.0 04/10/17 22:50 36.8 78 18 131/71 (91) 95 Nasal Cannula 2.0 04/10/17 15:59 80 137/91 (106) 04/10/17 15:35 Nasal Cannula 2.0 04/10/17 15:00 36.7 78 20 78/50 (59) 95 Nasal Cannula 2.0 04/10/17 13:28 93 (Daisy Puente ., NICOLLE-C) Physical Exam Notes: General appearance: +Obese. Well-developed, well-nourished, no apparent distress Head: Normocephalic, atraumatic Eyes: Normal inspection, PERRL, EOMI ENT: Normal ENT inspection, hearing grossly normal, pharynx normal Neck: Supple, no JVD, trachea midline Respiratory/Chest: +Absent lung sounds left base--pt has chronically elevated left hemidiaphragm. Lungs clear to auscultation, normal breath sounds, no respiratory distress Cardiovascular: Regular rate & rhythm, no gallop, no murmur Abdomen/GI: Normal bowel sounds, non-tender, soft Extremities/Musculoskeletal: +Spinous process at T12 TTP, milder paraspinal tenderness. LSO brace on. Normal inspection, no calf tenderness, no pedal edema Neurological/Psych: Alert, normal mood/affect, oriented x 3 Skin: Normal color, warm/dry, no rash (Daisy Puente ., PA-C) Laboratory Results Last 24 Hours Test 04/11/17 06:34 White Blood Count 9.76 K/uL Red Blood Count 4.71 M/uL Hemoglobin 15.8 g/dL Hematocrit 48.1 % Mean Corpuscular Volume 102.1 fL Mean Corpuscular Hemoglobin 33.5 pg Mean Corpuscular Hemoglobin Concent 32.8 g/dl RDW Standard Deviation 49.6 fL RDW Coefficient of Variation 13.3 % Platelet Count 136 K/uL Mean Platelet Volume 10.9 fL Sodium Level 136 mmol/L Potassium Level 3.9 mmol/L Chloride Level 102 mmol/L Carbon Dioxide Level 28 mmol/L Anion Gap 6.0 mmol/L Blood Urea Nitrogen 20 mg/dl Creatinine 0.68 mg/dl Est Creatinine Clear Calc Drug Dose 73.5 ml/min Estimated GFR () 102.7 Estimated GFR (Non- 88.6 BUN/Creatinine Ratio 29.6 Random Glucose 98 mg/dl Calcium Level 9.2 mg/dl (Daisy Puente ., PA-C) Assessment and Plan 71 y/o female with a 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 T12 fracture following fall, ambulatory dysfunction--ongoing - Admit to med/surg - Pain management with Ultram, Percocet, and Morphine prn. Pt states pain is manageable, awake/alert - Consult Spine - suspect conservative management but appreciate input, awaiting recs. Consulted physician not available, will consult Dr. Cassidy - Consult Orthotics: pt fitted for TLSO but she did not think she could don/ doff by herself. LSO given instead but can switch to TLSO if orthopedics thinks it's necessary - PT/OT evaluate and treat. Recommend rehab, pt's first choice [facility], second choice [facility]. Insurance auth sent Hypoxia--improving -Repeat CXR shows mild pulmonary vascular congestion -Pt clinically appears dry, given 1L NSS slowly on 04/10 -Continuous pulse ox -Pt down to 89% on room air, 94% on 1L. Will continue to wean as tolerated Secondary Polycythemia--improving - Patient was unaware of this - was a previous smoker and may be related to Arimidex - Hgb 15.8 on 04/11, down from 19 on admission. Dehydration may have been contributing Diaphragmatic Paralysis / Radiation Therapy: - Advair 1 puff BID and Combivent 2 puffs Q4H PRN H/O Breast CA S/P B/L Simple Mastectomy - CXR with nodular opacities - review of outpatient records show she had a CT in Nov 2016 that notes the thyroid nodules and did mention R lobe prominences - recommend F/U CXR - Arimidex 1 mg daily DVT Prophylaxis -Heparin 5000 units Q12H Code Status -Level I, FULL RESUSCITATION STATUS Disposition: - Case management following, rehab insurance auth pending (Daisy Puente ., PAVargheseC) PA Physician Supervision Note: I interviewed and examined the patient. Discussed with Daisy MRAS and agree with findings and plan as documented in the note. Any exceptions or clarifications are listed here: None Patient is here with a T12 compression fracture for pain control she did have some episodes of hypoxia and she does have an abnormal chest x-ray with what appears to be a large hiatal hernia with most of her stomach contents in her left chest and her cardiac silhouette being displaced to the right towards her right chest. She has been a smoker for many years and has lived with a smoker. The patient is aware of her abnormal chest x-rays this been present for some time she is not however had a history of having hypoxic issues with it. I did show her and her family her CXR and spoke to the patient today, she likely has some underlying lung disease that is now coming to light with her chest wall restriction from her pain Her pain is manageable and orthotics as supplied a Girdle style brace, she has pain to movement and deep inspiration Vitals are stable exam shows her back to be not point tender to exam cardiac exam is regular lungs of decreased breath sounds and absent breath signs of the left side otherwise reasonable movement, no wheezes T12 compression fracture with pain control patient is doing fairly well with occasional use of Percocet patient and family are seeking subacute rehabilitation ming underling lung disease, maybe COPD, influenced also by large diaphragmatic hernia Documented By: Babar Hernandez (Babar Hernandez M.D.)
[2017-04-11] MEDS: ALUMINUM/MAGNESIUM/SIMETH (MAALOX MAX) 30 ML UDC PO PRN (13:56)
--- NOTE | 2017-04-11 17:09 | CONSULTATION REPORT ---
DATE OF CONSULTATION: 04/09/2017 CHIEF COMPLAINT: Back pain. REASON FOR CONSULTATION: T12 compression fracture. HISTORY: Tasha is delightful. She has some lingering low back pain. She was walking, fell, leaning up against with the bed, injuring her lumbar spine. Had low back pain with difficulty with ambulation. She had no loss of consciousness. Did lay on the floor. Imaging demonstrating from an orthopedic standpoint a T12 compression fracture. 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 She also has hypertension and polycythemia. SOCIAL HISTORY: Former smoker. Not a tobacco user anymore. . Retired. ALLERGIES: No known allergies. MEDICATIONS: Listed, reviewed. REVIEW OF SYSTEMS: No fevers, sweats, chills. She is alert, oriented. Denies any head issues. Denies any current chest pain. Occasional shortness of breath. No nausea, vomiting. OBJECTIVE: Vital signs stable. Good blood pressure. HEENT: Normocephalic. ENT normal. LUNGS: Normal breath sounds, no significant distress but slight. CARDIAC: Regular rate and rhythm. ABDOMEN: Soft, nontender. She does have some mild back pain. NEUROLOGIC: Intact. Vascular structures intact. Slight pain with percussion. CT scan demonstrated T12 compression fracture. There is no retropulsion, is age indeterminate. It could be acute or subacute in my opinion. ASSESSMENT: From an orthopedic standpoint, an age indeterminate, will call it an acute T12 compression fracture with osteopenia, mild compression deformity. DISPOSITION: We will fit her for a lumbosacral orthosis. I do not think we need to go up too high on her and restrict her lung disease any further. The brace should be worn for comfort. When she is at bed rest, not be needed when she is up ambulatory at [facility]. With a walker it is appropriate. I should see her back in the office in probably 1 month. If needed, , at [facility] orth[facility]. The patient and family or [facility] can call for appointment. I would go with appropriate medication for pain, of course not overly sedate the patient. Brace has been ordered and delivered already.
[2017-04-12 03:54] VITALS: BP 141/90
[2017-04-12 06:18] LABS: HEMATOCRIT 46.1 % (37-47); MEAN CELL VOLUME 100.7 fL (80-100); MEAN CORPUSCULAR HEMOGLOBIN 33.8 pg (25-34); MEAN CORPUSCULAR HGB CONC 33.6 g/dl (32-36); MEAN PLATELET VOLUME 11.2 fL (7.4-10.4); PLATELET COUNT 119 K/uL (130-400); RED BLOOD COUNT 4.58 M/uL (4.2-5.4)
[2017-04-12 06:48] LABS: BUN/CREATININE RATIO 27.7 (10-20); CALCIUM 9.1 mg/dl (8.5-10.1); CREATININE 0.55 mg/dl (0.60-1.20); POTASSIUM 4.2 mmol/L (3.5-5.1)
[2017-04-12 07:05] VITALS: BP 179/85; PULSE 94; TEMP 36.6; O2SAT 93
[2017-04-12 07:45] VITALS: O2SAT 91
[2017-04-12 08:00] VITALS: BP 143/76
[2017-04-12] MEDS: FLUTICASONE/SALMETEROL 250/50 (ADVAIR) 14 PUFF/1 INHALER INH SCH (09:26)
[2017-04-12] MEDS: CALCIUM CARBONATE 500 MG CHEWABLE PO SCH (09:27)
[2017-04-12] MEDS: ESCITALOPRAM OXALATE 20 MG TAB PO SCH (09:27)
[2017-04-12] MEDS: ANASTROZOLE 1 MG TAB PO SCH (09:32)
[2017-04-12] MEDS: OXYCODONE/ACETAMINOPHEN 5-325 TAB PO PRN (09:35)
[2017-04-12] MEDS: HEPARIN SOD 5000 UNIT/0.5 ML CARP SQ SCH (10:17)
[2017-04-12 10:52] VITALS: BP 143/76; PULSE 94; TEMP 36.6; O2SAT 91
[2017-04-12] MEDS ORDERED: OXYC-57 PO (11:53)
[2017-04-12] MEDS ORDERED: CPC PO (11:53)
[2017-04-12] MEDS ORDERED: TUMS PO (11:53)
[2017-04-12] MEDS ORDERED: ERGO500011 PO (11:53)
[2017-04-12] MEDS ORDERED: ULT50X PO (11:53)
--- NOTE | 2017-04-12 11:57 | Discharge Instructions ---
Discharge Instructions Date of Service Apr 12, 2017. Admission Reason for Admission: Mechanical Fall,T12 Fracture Discharge Discharge Diagnosis / Problem: Mechanical Fall Discharge Goals Goal(s): Decrease discomfort, Improve function, Increase independence, Improve disease control Activity Recommendations Activity Level: Up Ad Magy, Assistance Required (1 assist, walker, with LSO brace) Therapies: Physical Therapy, Occupational Therapy Lifting Limitations: no more than 25 pounds, gradually increase as tolerated Exercise/Sports Limitations: as tolerated, gradually increase as tolerated Shower/Bathe: no limitations (with assistance) . Additional Information Patient informed of condition: Yes Advance Directives: No DNR: No Level of Care: Acute Rehab Communicable Disease: No Prognosis: Stable Narayan Catheter: No Instructions / Follow-Up Instructions / Follow-Up You were admitted to [facility] with mechanical fall and diagnosed with T12 fracture secondary to the fall. You were evaluated by orthotics and were fitted with a brace. You should continue to wear this with ambulation (walking) or with movement until seen by orthotics and instructed otherwise. You may take off the brace while sitting/ at rest. This is to be worn for comfort. During your stay here you were treated with pain medication and other supportive care At the time of admission you were hypoxic ( low oxygen ) and required supplemental O2, your breathing improved and you did require 1 L O2 at time of discharge. Please continue to have rehab evaluate this and provide prescription if needed at time of discharge. Medications: Continue taking your medications as above. Continue taking pain medication as needed. Continue a bowel regimen with stool softeners and fiber daily to help prevent any constipation. Appointments: Follow up with Physician at [facility] within 24-28 hours. Follow up with your Primary Care Provider within 1 week after discharge from rehab. Follow up with orthopedics within 3-[address] Cassidy, please call [phone] at [facility] orthopedics Current Hospital Diet Patient's current hospital diet: Regular Diet Discharge Diet Recommended Diet: Regular Diet Pending Studies Studies pending at discharge: no Medical Emergencies . Who to Call and When: Medical Emergencies: If at any time you feel your situation is an emergency, please call 911 immediately. . Non-Emergent Contact Non-Emergency issues call your: Primary Care Provider Call Non-Emergent contact if: you have a fever, temperature is above 100.5, your pain is not controlled, your pain is worsening, your pain is unusual for you, your pain is concerning you, you have any medication questions other concerns with your health. Call 911 or go directly to the Emergency Department if you experience any of the following: Chest pain, chest tightness, shortness of breath, abdominal pain , lightheadedness, dizziness, gastrointestinal bleeding, or have any other concerns regarding your health. . 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 "Provider Documentation" section prepared by Anel Guadalupe. . Core Measure Problem Core Measures: None
[2017-04-12] MEDS ORDERED: MOMLX PO (12:24)
[2017-04-12] MEDS ORDERED: MRLP17X PO (12:24)
[2017-04-12] MEDS ORDERED: BISA-16 PO (12:24)
--- NOTE | 2017-04-12 14:25 | Discharge Summary ---
Discharge Summary Date of Service Apr 12, 2017. 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 Pubic symphysis and sacroiliac joints congruent. Hip joints congruent. No advanced degenerative change. Lower lumbar spine within normal limits. IMPRESSION: No acute osseous injury of the pelvis. LUMBAR SPINE WITHOUT 04/09/17 IMPRESSION: 1. Fracture deformity of T12 in the setting of osteopenia. No retropulsion of fracture fragments. This is age indeterminate but suspected to be acute. Correlate for point tenderness. 2. Multilevel degenerative changes of lumbar spine without CT evidence of neural foraminal or spinal canal narrowing. HEAD WITHOUT CONTRAST (CT) 04/09/17 IMPRESSION: 1. No acute intracranial abnormality. CHEST ONE VIEW PORTABLE 04/09/17 IMPRESSION: 1. Nodular opacities in the right lung could represent prominent pulmonary vasculature versus multifocal nodules. This is somewhat suspicious given the history of breast cancer. 2. Chronic elevation of the left hemidiaphragm. 3. Cardiomegaly. CHEST ONE VIEW PORTABLE 04/09/17 FINDINGS: Chronic elevation left hemidiaphragm unchanged. Moderate stable cardiomegaly. Mild platelike atelectasis left base unchanged. Slight prominence pulmonary vasculature. Subtle nodularity right hemithorax is similar. IMPRESSION: Chronic change. Stable cardiomegaly. Mild pulmonary vascular congestion. Consultations: Orthopedics Orthotics Medication Reconciliation New Medications: Bisacodyl (Dulcolax) 5 Mg Tab 2 TAB PO DAILY for 7 Days, #14 TAB Calcium Carbonate (Tums) 500 Mg Chew 1000 MG PO DAILY for 30 Days, #30 DOSE Ergocalciferol (Vitamin D 11922 Unit) 50,000 Unit Cap 08379 INTERUNIT PO Q7D for 4 Days, #4 CAP Next dose on 04/16, take every Sunday. Magnesium Hydroxide (Milk of Magnesia) 30 Ml Susp 30 ML PO BID PRN for Constipation for 7 Days, #14 DOSE Menthol (Ricola) 24 Nabil/1 Box Lozg 1 NABIL PO PRN PRN for Cough for 7 Days, #1 BOX Oxycodone/Acetaminophen 5MG/325MG (Percocet 5MG/325MG) Tab 1-2 TAB PO Q4H PRN for Pain for 7 Days, #42 TAB PAIN Polyethylene (Miralax) 17 Gm Pow 17 GM PO DAILY for 7 Days, #7 DOSE Tramadol HCl (Tramadol HCl) 50 Mg Tab 50 MG PO Q6H PRN for Pain for 7 Days, #28 TAB Continued Medications: Alendronate Sodium (Fosamax) 70 Mg Tab 70 MG PO WK SUNDAYS Anastrozole (Anastrozole) 1 Mg Tab 1 TAB PO DAILY Escitalopram Oxalate (Lexapro) 20 Mg Tab 30 MG PO DAILY Fluticasone Prop/Salmeterol (Advair Diskus 250/50 60 Dose) 1 Ea Aerp 1 PUFF INH BID Ipratropium-Albuterol (Combivent Respimat) 1 Aer Aer 2 PUFFS INH Q4 PRN for SOB/Wheezing maxiumum of 6 puffs in 24 hours Discharge Exam The patient was seen and examined this morning. Pt reports doing well today, she is slightly sore in her back but Percocet is controlling her pain relatively well. She had a bowel movement last evening. Pts daughter is present at bedside and feels well. She has been up walking with PT/OT and using walker for assistance. Patient reports the brace fits her well in the she has been wearing it while she is up and ambulating. Denies any other acute complaints. All their questions and concerns were addressed and patient is scheduled for discharged to [facility] today. ROS: Constitutional: No fever, sweats or chills Eyes: No diplopia, no worsening or blurred vision ENT: normal hearing, + trouble swallowing, ongoing, improved with wet foods and drinking small sips of water while eating. Respiratory: No cough, sputum, dyspnea at rest or on exertion Cardiovascular: No chest pain, tightness or palpitations Abdomen: No pain, nausea, vomiting, diarrhea or constipation Musculoskeletal: No joint pain, calf pain, swelling Neurologic: No weakness, numbness/tingling. Psychiatric: No anxiety or depression Skin: No rash or itch PE: General: awake, alert, no apparent distress, wearing LSO brace, obese Head: Normocephalic, atraumatic ENT: PERRL, EOMI, no pharyngeal exudate, mucous membranes moist Chest: Clear to auscultation, on 1 L via NC, no adventitious breath sounds Cardiac: Regular rate and rhythm, no murmur, no JVD, normal peripheral pulses, good capillary refill Abdominal: NABS x 4 quadrants, soft, nontender to palpation, no rebound, guarding or tenderness Extremities: Normal inspection, no peripheral edema or erythema, calfs nontender to palpation Psych: Normal mood and affect Neuro: AAO x 3, speech is clear, no peripheral sensory deficits Hospital Course History of Present Illness Source: patient Ms. 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 Patient reports she was walking to her bed and thought she was leaning against the foot of the bed but instead it was a shoe rack and she fell over hitting her left side. She continues to experience low back pain and is finding it difficult to ambulate. Due to this pain she has barely eaten over the past 2 days. She states she does have a cane that she ambulates with when outside the home but typically does not need to use this at home. She did strike the left side of her head but denies loss of consciousness. She states she was not on the floor very long. She denies any recent illnesses, dizziness/ lightheadedness, or any other pains/injuries. Imaging supports a T12 fracture. She follows with her PCP and has had DEXA scans in the past. Physical Exam Vital Signs Date Time Temp Pulse Resp B/P (MAP) Pulse Ox O2 Delivery O2 Flow Rate FiO2 04/09/17 17:44 138/76 04/09/17 14:35 36.6 95 22 96 Room Air General Appearance: WD/WN, no apparent distress Head: normocephalic, atraumatic Eyes: sclerae normal ENT: hearing grossly normal Neck: supple, no JVD, trachea midline Respiratory/Chest: lungs clear, normal breath sounds, no respiratory distress, no accessory muscle use Cardiovascular: regular rate, rhythm, no gallop, no murmur Abdomen/GI: normal bowel sounds, non tender, soft Extremities/Musculoskelatal: no calf tenderness, no pedal edema Neurologic/Psych: alert, oriented x 3 Skin: normal color, warm/dry Hospital Course: 71 y/o female with a 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 T12 fracture following fall, ambulatory dysfunction--ongoing - Pain management with Ultram, Percocet, and Morphine prn. - pt using percocet mostly for pain - Orthopedics consulted - Dr. Cassidy - f/u within 3-4 weeks. - Continue LSO brace with ambulation. Can be taken off while sitting still. May also be worn for comfort - PT/OT on board Hypoxia--improving - Repeat CXR shows mild pulmonary vascular congestion - Pt clinically appears dry, given 1L NSS slowly on 04/10 - Continuous pulse ox during admission - Pt continued to need O2 likely from suspected COPD, T12 compression fracture with instructions to wear the brace,and large hiatal hernia for causing hypoxia Patient to be transported with O2, [facility] can determine if the patient requires oxygen at the time of discharge to home from their facility. Patient will need to follow-up with thoracic surgery after thoracic spine compression fracture resolved to determine if hiatal hernia can be surgically corrected. Secondary Polycythemia--improving - Patient was unaware of this - was a previous smoker and may be related to Arimidex - Hgb 15.8 on 04/11, down from 19 on admission. Dehydration likely contributing Diaphragmatic Paralysis 2/2 Radiation Therapy: - Advair 1 puff BID and Combivent 2 puffs Q4H PRN H/O Breast CA S/P B/L Simple Mastectomy - CXR with nodular opacities - review of outpatient records show she had a CT in Nov 2016 that notes the thyroid nodules and did mention R lobe prominences - recommend F/U CXR - Arimidex 1 mg daily DVT Prophylaxis -Heparin 5000 units Q12H Code Status: Full Disposition: From home, discharged to [facility] today. PA Physician Supervision Note: I interviewed and examined the patient. Discussed with Sasha MARS and agree with findings and plan as documented in the note. Any exceptions or clarifications are listed here: None Patient presented with some acute back pain was found have transient hypoxemia she was a history of smoking and she has a history of left breast cancer status post radiation therapy so there are some reasons that her pulmonary function may be slightly low however her admission chest x-ray showed a very large diaphragmatic hernia containing her stomach to take approximate 1/2-2/3 of her left chest. Patient and her family do note that she had this hernia in the past but has not been this large. Patient did subsequent her car oxygen supplementation here she was [facility] on inhaled medications for COPD although no formal diagnosis has been made. Her strong recommendations for following up with pulmonary medicine considering cardiothoracic surgery for repair of her hernia. This Patient is seen in the of discharge her vital signs are stable she did require supplemental oxygen of 1 L to keep her from dipping below 90% with exertion. Her lungs absent breath sounds at the left base which would be expected given her large hernia car exam was regular her back pain with acceptable She'll go to penitentiary facility with pain control for her T12 compression fracture augmenting her oxygen is low cannula with possible follow-up as mentioned above Documented By: Babar Hernandez Total Time Spent: Greater than 30 minutes This includes examination of the patient, discharge planning, medication reconciliation, and communication with other providers. Discharge Instructions Please refer to the electronic Patient Visit Report (Discharge Instructions) for additional information. Follow-Up Follow up with Physician at [facility] within 24-28 hours. Follow up with your Primary Care Provider within 1 week after discharge from rehab. Follow up with orthopedics within 3-[address] Cassidy, please call at [facility] orthopedics Additional Copies To Wilfredo Kaplan M.D.
== END 2017-04-12 13:00 | DRG 552 ==
LOC: C.EDB 14:33 → C.MSN 18:07 → ENRESERV 18:38
PROVIDERS: ADMIT Internal Medicine; ATTEND Internal Medicine
DX: S22.080A Wedge compression fracture of T11-T12 vertebra, initial encounter for closed fracture (principal); W18.30XA Fall on same level, unspecified, initial encounter; Y92.003 Bedroom of unspecified non-institutional (private) residence as the place of occurrence of the external cause; M85.88 Other specified disorders of bone density and structure, other site; R09.02 Hypoxemia; K44.9 Diaphragmatic hernia without obstruction or gangrene; J44.9 Chronic obstructive pulmonary disease, unspecified; M54.5 Low back pain; R26.2 Difficulty in walking, not elsewhere classified; E86.0 Dehydration; T17.998A Other foreign object in respiratory tract, part unspecified causing other injury, initial encounter; X58.XXXA Exposure to other specified factors, initial encounter; J98.6 Disorders of diaphragm; T66.XXXS Radiation sickness, unspecified, sequela; Y84.2 Radiological procedure and radiotherapy as the cause of abnormal reaction of the patient, or of later complication, without mention of misadventure at the time of the procedure; D75.1 Secondary polycythemia; T45.1X5A Adverse effect of antineoplastic and immunosuppressive drugs, initial encounter; E66.9 Obesity, unspecified; Z68.30 Body mass index [BMI] 30.0-30.9, adult; Z87.891 Personal history of nicotine dependence; Z79.811 Long term (current) use of aromatase inhibitors; Z79.83 Long term (current) use of bisphosphonates; Z79.51 Long term (current) use of inhaled steroids; Z79.899 Other long term (current) drug therapy

== ENCOUNTER → 2017-05-08 | Outpatient (CLI) | payer OTHER ==
[~2017-05-08] MED LIST changes: -ALEN1TAB21 PO; +ALEN70TA2 PO; +CPC PO; +ERGO500011 PO; +MOMLX PO; +MRLP17X PO; +OXYC-57 PO; +TUMS PO; +ULT50X PO
--- NOTE | 2017-05-08 11:59 | DIAGNOSTIC IMAGING REPORT ---
(CHEST) THORAX WITHOUT CT DOSE: 293.33 mGy.cm CLINICAL HISTORY: 71 years-old Female with R93.8 Abnormal chest [id number]. Follow-up study in a patient with history of breast cancer TECHNIQUE: Multiaxial CT images of the chest were performed without contrast. A dose lowering technique was utilized adhering to the principles of ALARA. COMPARISON: Chest radiograph 04/10/2017, Chest CT 11/30/2016 and 10/13/2011, lumbar spine CT 04/09/2017. FINDINGS: Heterogeneity of the thyroid with nodules measuring up to 1.1 cm on the left. No pathologic adenopathy by CT size criteria. Mildly prominent nonspecific right paratracheal lymph node measures up to 1.3 x 0.8 cm. Trace pericardial effusion. Coronary arterial disease. Moderate atherosclerosis of the aorta without aneurysm identified. There is tortuosity of the descending thoracic aorta. There is no pneumothorax or pleural effusion. Mild centrilobular emphysema with mild right apical pleural-parenchymal scarring. Mild subpleural reticulation is noted within the lung bases suggesting areas of chronic scarring. There is a 3 mm pulmonary nodule right lower lobe seen on image 166 series 4 which appears groundglass. No suspicious pulmonary nodules identified. Redemonstration of moderate left hemidiaphragmatic elevation with subsegmental left basilar atelectasis or scarring. The central airways are patent. Calcifications of the tracheobronchial tree are noted. Ill-defined low attenuating 1.8 x 1.0 cm lesion of the right hepatic lobe appears unchanged dating back to at least 10/13/2011 suggesting benign hepatic cyst. Exophytic cyst of the superior pole left kidney measures 4.8 cm. Mild colonic diverticulosis. Soft tissues are unremarkable. No suspicious lytic or blastic bony lesions identified to suggest metastasis. Increased kyphotic curvature of the thoracic spine. Healing compression fracture of the T12 vertebral body is noted with 4 mm retropulsion. IMPRESSION: 1. No acute intrathoracic abnormality identified. No evidence of metastatic disease. 2. Unchanged moderate left hemidiaphragmatic elevation with subsegmental left basilar atelectasis/scarring. 3. Mild centrilobular emphysema. 4. Healing compression deformity of the T12 vertebral body with 4 mm retropulsion. 5. No pathologic-appearing adenopathy. Electronically signed by: Seth Garay M.D. 05/08/2017 11:57 AM Dictated Date/Time: 05/08/2017 11:48 AM
== END | disposition home or self-care (01) ==
LOC: C.CTS 11:19
PROVIDERS: ATTEND Family Medicine
DX: R93.8 Abnormal findings on diagnostic imaging of other specified body structures (principal)

== ENCOUNTER → 2017-05-14 | Outpatient (CLI) | payer OTHER ==
--- NOTE | 2017-05-14 13:10 | DIAGNOSTIC IMAGING REPORT ---
ULTRASOUND OF THE THYROID GLAND CLINICAL HISTORY: Thyroid nodule. COMPARISON STUDY: Chest CT dated 05/08/2017. TECHNIQUE: Real-time, grayscale, and color flow sonography of the thyroid gland is performed utilizing a high-frequency linear transducer. Images are reviewed in the transverse and longitudinal planes. FINDINGS: Right lobe: The right lobe of the thyroid gland is normal in size and heterogeneous in echotexture, measuring 4.2 x 1.3 x 1.5 cm. A cystic nodule in the lower pole measures 0.9 x 0.7 x 0.8 cm. A honeycomb nodule in the anterior midpole measures 0.8 x 0.4 x 0.9 cm. A cystic nodule in the posterior midpole measures 0.7 x 0.5 x 0.7 cm. 2 additional nodules measuring up to 4 mm are incidentally noted. Left lobe: The left lobe of the thyroid gland is slightly atrophic and heterogeneous in echotexture, measuring 3.6 x 1.0 x 1.2 cm. A honeycomb nodule in the lower pole measures 0.8 x 0.5 x 0.7 cm. A additional 5 mm hypoechoic nodule is seen within the medial left lobe. Isthmus: The thyroid isthmus appears mildly thickened and heterogeneous in echotexture, measuring 0.5 cm in AP diameter. A hypoechoic solid nodule in the left aspect of the isthmus measures 1.0 x 0.6 x 0.7 cm. IMPRESSION: 1. The thyroid gland is heterogeneous in echotexture. Correlation with serum thyroid function studies is recommended. 2. There are numerous low suspicion thyroid nodules measure up to 10 mm as detailed above. These do not meet sonographic criteria for fine-needle aspiration. Electronically signed by: Karsten Alfaro M.D. 05/14/2017 1:09 PM Dictated Date/Time: 05/14/2017 1:06 PM
== END | disposition home or self-care (01) ==
LOC: C.ULTR 12:11
PROVIDERS: ATTEND Family Medicine
DX: E04.1 Nontoxic single thyroid nodule (principal)

== ENCOUNTER → 2017-07-17 | Outpatient (CLI) | payer OTHER | END | disposition home or self-care (01) | LOC: C.LABPVFM 11:53 | PROVIDERS: ATTEND Nurse Practitioner | DX: N39.0 Urinary tract infection, site not specified (principal) ==

== ENCOUNTER → 2017-07-25 | Outpatient (CLI) | payer OTHER ==
[2017-07-25 17:15] LABS: BASO % 0.5 %; BASO ABS # 0.05 K/uL (0-0.2); EOS % 2.8 %; HEMATOCRIT 51.1 % (37-47); HEMOGLOBIN 17.2 g/dL (12.0-16.0); IG# 0.05 K/uL (0.00-0.02); LYMPH % 27.1 %; LYMPH ABS # 2.86 K/uL (1.2-3.4); MEAN CELL VOLUME 96.1 fL (80-100); MEAN CORPUSCULAR HEMOGLOBIN 32.3 pg (25-34); MEAN CORPUSCULAR HGB CONC 33.7 g/dl (32-36); MONO % 7.8 %; MONO ABS # 0.82 K/uL (0.11-0.59); NEUT % 61.3 %; NEUT ABS # 6.48 K/uL (1.4-6.5); PLATELET COUNT 198 K/uL (130-400); RED CELL DISTRIBUTION WIDTH CV 16.4 % (11.5-14.5); RED CELL DISTRIBUTION WIDTH SD 55.7 fL (36.4-46.3); WHITE BLOOD COUNT 10.56 K/uL (4.8-10.8)
[2017-07-25 18:18] LABS: ALBUMIN 3.5 gm/dl (3.4-5.0); ALT/SGPT 19 U/L (12-78); AST/SGOT 22 U/L (15-37); BLOOD UREA NITROGEN 12 mg/dl (7-18); CALCIUM 9.8 mg/dl (8.5-10.1); CARBON DIOXIDE 29 mmol/L (21-32); CREATININE 0.76 mg/dl (0.60-1.20); GLUCOSE 103 mg/dl (70-99); POTASSIUM 4.1 mmol/L (3.5-5.1); SODIUM 136 mmol/L (136-145)
[2017-07-25 18:19] LABS: ALKALINE PHOSPHATASE 95 U/L (45-117); TOTAL PROTEIN 7.5 gm/dl (6.4-8.2)
== END | disposition home or self-care (01) ==
LOC: C.LABPVFM 14:52
PROVIDERS: ATTEND Family Medicine
DX: E04.2 Nontoxic multinodular goiter (principal); J45.909 Unspecified asthma, uncomplicated; I10 Essential (primary) hypertension; D75.1 Secondary polycythemia

== ENCOUNTER → 2017-11-21 | Outpatient (CLI) | payer OTHER ==
[2017-11-21 17:35] LABS: BASO % 0.7 %; BASO ABS # 0.06 K/uL (0-0.2); EOS % 2.1 %; EOS ABS # 0.18 K/uL (0-0.5); HEMATOCRIT 61.4 % (37-47); HEMOGLOBIN 20.5 g/dL (12.0-16.0); IG# 0.06 K/uL (0.00-0.02); LYMPH % 18.6 %; MEAN CELL VOLUME 102.8 fL (80-100); MEAN CORPUSCULAR HEMOGLOBIN 34.3 pg (25-34); MEAN PLATELET VOLUME 11.7 fL (7.4-10.4); MONO ABS # 0.86 K/uL (0.11-0.59); NEUT % 67.9 %; NEUT ABS # 5.82 K/uL (1.4-6.5); PLATELET COUNT 169 K/uL (130-400); RED CELL DISTRIBUTION WIDTH CV 14.8 % (11.5-14.5); RED CELL DISTRIBUTION WIDTH SD 55.8 fL (36.4-46.3); WHITE BLOOD COUNT 8.58 K/uL (4.8-10.8)
[2017-11-21 17:40] LABS: MEAN CORPUSCULAR HGB CONC 33.4 g/dl (32-36)
[2017-11-22 06:53] LABS: HEMOGLOBIN A1C 5.2 % (4.5-5.6)
== END | disposition home or self-care (01) ==
LOC: C.LABPVFM 14:24
PROVIDERS: ATTEND Family Medicine
DX: R73.09 Other abnormal glucose (principal); D75.1 Secondary polycythemia

== ENCOUNTER 2021-03-16 23:52 | Observation (INO) ==
[2021-03-17 02:15] LABS: Hematocrit (blood only) 41.3 % (37-47); Hemoglobin 14.5 g/dL (12.0-16.0); Mean Corpuscular Hemoglobin 33.3 pg (25-34); Mean Corpuscular Hgb Conc 35.1 g/dL (32-36); Mean Corpuscular Volume 94.7 fL (80-100); Mean Platelet Volume 9.8 fL (7.4-10.4); Platelet Count 272 K/uL (130-400); RDW Coefficient of Variation 12.6 % (11.5-14.5); RDW Standard Deviation 43.8 fL (36.4-46.3); Red Blood Count 4.36 M/uL (4.2-5.4)
[2021-03-17 02:41] LABS: Albumin Globulin Ratio 0.9 (0.9-2); Albumin Level 3.4 gm/dl (3.4-5.0); BUN Creatinine Ratio 27.3 (10-20); Bilirubin,Total 0.3 mg/dl (0.2-1); Calcium 9.8 mg/dl (8.5-10.1); Creatinine Clr Calc Pharmacy 79.5 ml/min; Est GFR (African American) 109.1 ml/min; Est GFR (Non-African American) 94.1 ml/min; Total Protein 7.4 gm/dl (6.4-8.2)
[2021-03-17 03:43] LABS: Potassium 3.3 mmol/L (3.5-5.1)
[2021-03-17 03:47] LABS: INR 0.9 (0.9-1.1); Partial Thromboplastin Ratio 1.1; Partial Thromboplastin Time 29.8 Seconds (21.0-31.0); Prothrombin Time 9.6 Seconds (9.0-12.0)
[2021-03-17] MEDS ORDERED: OPTIRAY 320 100ml IV ONE (03:52)
[2021-03-17] MEDS ORDERED: POTASSIUM CHLORIDE CRTAB 20 MEQ TABCR PO STA (06:30)
--- NOTE | 2021-03-17 06:30 | History & Physical Report ---
Date of Service March 17, 2021 Assessment & Plan (1) Rectal bleeding: Plan: 75yo female with history of diverticulosis presenting with rectal bleeding, ongoing since last evening - patient reports copious blood loss with passage of clots. She is on ASA daily, otherwise no blood thinners. HD stable. Hbg 12. No symptoms of anemia present. Suspect diverticular bleed. Also may consider hemorrhoid, colitis, AVM -Observation to medical with telemetry -Maintain 2 large PIVs -Check orthostatic VS x 1 -CBC q 8 hours - transfuse for ongoing blood loss, symptomatic anemia or Hgb < 7. Consent obtained and placed on chart -Hold ASA -GI consultation appreciated (2) Restrictive lung disease: Plan: Patient denies worsening SOB. Adequate oxygenation on 2.5L O2 by NC -Continue supplemental O2 -Continue Advair at home dosage -Albuterol PRN (3) Hypertension: Plan: Blood pressure stable -Hold HCTZ for now in setting of active bleeding -Monitor BP (4) Depression: Plan: Chronic. Stable -Continue Escitalopram 40mg po qAM -Continue Trazodone as needed for sleep (5) Breast cancer: Plan: Noted -Continue Anastrozole Plan: F/E/N - PIV x 2, K repleted with 40meq PO x 1, Clear liquid diet Patient reports drinking 2-3 vodka drinks/day. No history of withdrawal symptoms -Place on AWSS at risk protocol with Ativan PRN Ppx - SCDs Code - Full per discussion with patient Dispo - Observation to medical with telemetry History of Present Illness Chief Complaint: rectal bleeding Primary Care Provider: Maeve Maya MD Tasha Alonso is a pleasant 75yo female presenting with rectal bleeding. She reports copious bright red blood per rectum with passage of clots ongoing since last night (03/16/21) around 22:30. She has some mild lower abdominal discomfort and feeling of rectal pressure. Denies nausea, vomiting, fever, chills. Denies chest pain, palpitations, dizziness, SOB. She has been using pads to catch the bleeding - reported to have filled 3 pads in the ER. No additional complaints at this time. Patient had rectal bleeding in the past. Was seen by GI. Had a CT of the abdomen with PO and IV contrast which showed extensive colonic diverticulosis without acute diverticulitis. Patient states that this current bleeding is more severe than her prior episode. Afebrile. HD stable. Hgb=14.5 (down from prior value of 16.2 in 10/2020) ER Course: KCL 40mEq Allergies Allergy/AdvReac Type Severity Reaction Status Date / Time No Known Allergies Allergy Verified 03/17/21 01:47 Home Medications Medication Instructions Recorded Confirmed Type Oxygen Home #1 ea 09/17/18 03/02/21 Rx docusate sodium 100 mg capsule 100 mg PO DAILY PRN #30 cap 05/04/20 03/17/21 Rx (Stool Softener) anastrozole 1 mg tablet 1 mg PO QAM 06/30/20 03/17/21 History aspirin 81 mg tablet,delayed 81 mg PO QAM 06/30/20 03/17/21 History release multivitamin (Multiple Vitamins) 1 tab PO QAM 06/30/20 03/17/21 History hydrochlorothiazide 12.5 mg tablet 12.5 mg PO QAM #90 tab 01/14/21 03/17/21 Rx albuterol sulfate 90 mcg/actuation 2 puff INH Q6H PRN #3 inhaler 01/28/21 03/17/21 Rx aerosol inhaler (ProAir HFA) escitalopram oxalate 20 mg tablet 40 mg PO QAM #90 tab 03/02/21 03/17/21 Rx (Lexapro) trazodone 50 mg tablet 50 mg PO HS #30 tab 03/02/21 03/17/21 Rx fluticasone 100 mcg-salmeterol 50 1 inh INHALATION BID #60 ea 03/16/21 03/17/21 Rx mcg/dose blistr powdr for inhalation (Advair Diskus) Past Med/Surg History Medical History (Updated 03/02/21 @ 13:57 by Maeve Maya MD) Acquired elevated diaphragm Anxiety Chronic obstructive pulmonary disease inhalers daily; oxygen 2L at hs Depression Diverticular disease History of anemia History of anesthesia reaction after last colonoscopy 5yrs ago, had difficulty waking and had to have a breathing treatment in the recovery room History of bilateral breast cancer diagnosed 1999--left breast diagnosed--lumpectomy/radiation 2014--right breast diagnosed--bilt mastectomy/oral chemo On home oxygen therapy 2L at hs Osteoarthritis Restrictive lung disease Shortness of breath Surgical History H/O abdominal hysterectomy H/O bilateral mastectomy (~2014) @ [facility] History of arthroscopy of right knee History of bilateral tubal ligation History of colonoscopy History of left breast biopsy malignant History of lumpectomy of left breast (~1999) History of nasal polypectomy History of right breast biopsy malignant History of tooth extraction History of wisdom tooth extraction Family History Mother Pancreatitis Hypertension Sister Lung disease Family/Other Family history of diabetes mellitus Other No family history of adverse response to anesthesia Denies family history of Ovarian cancer Prostate cancer Myocardial infarction Breast cancer Colorectal cancer Social History Smoking Status: Former smoker Second Hand Exposure: Yes; Hx Alcohol Use: Yes Alcohol type: hard liquor Alcohol Intake Frequency: 2-3 x/Week Hx Substance Use: No Preferred Language: Mohawk Communication Ability: Effective Hearing Ability: Normal Doughnut Batter Mixer Required: No Beliefs That Will Affect Care: None marital status: / Current Living Situation: Alone current occupational status: retired Feels Safe at Home: Yes caffeine: Yes Dental Care, Regularly: Yes Physical Activity Frequency: 1-2 Times per Week Seatbelt Use: always Sunscreen Use: Yes Assistive Devices: Cane, Glasses and Oxygen - at Night Review of Systems Review of Systems: All systems reviewed & are unremarkable except as noted in HPI & below Physical Exam Physical Exam: General: patient resting comfortably, NAD, non-toxic in appearance, AA&O x 4, anxious Skin: warm, dry, intact, no rashes or lesions HEENT: NC/AT, PERRL, EOMI, anicteric sclera, conjunctiva without injection, external ear normal to inspection and nontender, nares patent, moist mucus membranes, dentition intact, no oropharyngeal lesions, neck supple, trachea midline, no LAD, no thyromegaly, no JVD Heart: +S1/S2, regular, no m/r/g Lungs: diminished breath sounds left, no rales/rhonchi/wheezes Abd: +BS, soft, ND, mild tenderness across lower abdomen, no masses/organomegaly/ascites Ext: warm, 2+ pulses in UE/LE bilaterally, no clubbing/cyanosis or edema Neuro: nonfocal, patient AA&O x 4, speech intact, no facial droop, moving all extremities on command with equal strength 5/5 Results & Data [facility] Vital Signs (Past 12 Hours) Vital Signs Temp Pulse Pulse Resp BP BP Pulse Ox 03/17/21 01:53 82 82 18 154/80 H 97 03/17/21 00:03 36.4 C L 88 18 151/80 H 97 Laboratory Results Laboratory Results WBC 10.60 K/uL (4.8-10.8) 03/17/21 02:05 RBC 4.36 M/uL (4.2-5.4) 03/17/21 02:05 Hgb 14.5 g/dL (12.0-16.0) 03/17/21 02:05 Hct 41.3 % (37-47) 03/17/21 02:05 MCV 94.7 fL (80-100) 03/17/21 02:05 MCH 33.3 pg (25-34) 03/17/21 02:05 MCHC 35.1 g/dL (32-36) 03/17/21 02:05 RDW Std Deviation 43.8 fL (36.4-46.3) 03/17/21 02:05 RDW Coeff of Joseline 12.6 % (11.5-14.5) 03/17/21 02:05 Plt Count 272 K/uL (130-400) 03/17/21 02:05 MPV 9.8 fL (7.4-10.4) 03/17/21 02:05 PT 9.6 Seconds (9.0-12.0) 03/17/21 03:11 INR 0.9 (0.9-1.1) 03/17/21 03:11 APTT 29.8 Seconds (21.0-31.0) 03/17/21 03:11 PTT Ratio 1.1 03/17/21 03:11 Sodium 130 mmol/L (136-145) L 03/17/21 02:05 Potassium 3.3 mmol/L (3.5-5.1) L 03/17/21 03:11 Chloride 96 mmol/L (98-107) L 03/17/21 02:05 Carbon Dioxide 28 mmol/L (21-32) 03/17/21 02:05 Anion Gap 6.0 (3-11) 03/17/21 02:05 BUN 14 mg/dl (7-18) 03/17/21 02:05 Creatinine 0.52 mg/dl (0.6-1.2) L 03/17/21 02:05 Est Cr Clr Drug Dosing 79.5 ml/min 03/17/21 02:05 Est GFR ( Amer) 109.1 ml/min 03/17/21 02:05 Est GFR (Non-Af Amer) 94.1 ml/min 03/17/21 02:05 BUN/Creatinine Ratio 27.3 (10-20) H 03/17/21 02:05 Glucose 101 mg/dl (70-99) H 03/17/21 02:05 Calcium 9.8 mg/dl (8.5-10.1) 03/17/21 02:05 Total Bilirubin 0.3 mg/dl (0.2-1) 03/17/21 02:05 AST 18 U/L (15-37) 03/17/21 03:11 ALT 23 U/L (12-78) 03/17/21 02:05 Alkaline Phosphatase 82 U/L (45-117) 03/17/21 02:05 Total Protein 7.4 gm/dl (6.4-8.2) 03/17/21 02:05 Albumin 3.4 gm/dl (3.4-5.0) 03/17/21 02:05 Globulin 4.0 gm/dl (2.5-4.0) 03/17/21 02:05 Albumin/Globulin Ratio 0.9 (0.9-2) 03/17/21 02:[address] Abdomen and Pelvis with Contrast - per [employer] - Markedly elevated left hemidiaphragm. Sigmoid diverticulosis. No convincing evidence of diverticulitis. Code Status & VTE Plan VTE Prophylaxis Plan VTE Prophylaxis will be ordered: Yes PG Care Time/CCT Total # of Minutes Spent Total Time Spent with Patient: Total time spent is greater than 50% in coordination of care (as documented) at patient's floor/unit and/or counseling patient: Coding Level of Care Code INT OBSERVATION CARE 50M LVL 2 Diagnoses Restrictive lung disease J98.4 Rectal bleeding K62.5 Hypertension I10 Depression F32.9 Breast cancer C50.919
--- NOTE | 2021-03-17 07:18 | CT Scan Report ---
CT SCAN OF THE ABDOMEN AND PELVIS WITH IV CONTRAST CLINICAL HISTORY: Generalized abdominal pain. Hematochezia. COMPARISON STUDY: Abdominal CT dated 10/29/2020. TECHNIQUE: Following the IV administration of 93 cc of Optiray 320, CT scan of the abdomen and pelvi s is performed from the lung bases to the proximal femora. Images are reviewed in the axial, sagittal , and coronal planes. IV contrast was administered without complication. A dose lowering technique wa s utilized adhering to the principles of ALARA. The examination is degraded by streak artifact from t he left arm which could not be elevated above the abdomen. CT DOSE: 297.92 mGy.cm FINDINGS: Lung bases: The heart is normal in size and without pericardial effusion. The right lung base is sonia r as visualized. There is marked elevation of the left hemidiaphragm with protrusion of abdominal con tents into the left lower thorax and rightward shift of the mediastinum. Liver: The contrast-enhanced liver is normal in size, contour, and attenuation. There is no intrahepa tic biliary ductal dilatation. The hepatic veins and portal veins are patent. A 1.6 cm hepatic cyst i s incidentally noted. Gallbladder: Unremarkable. Spleen: Imaged portions of the spleen are normal in size and attenuation. The superior spleen is loca andi in the thorax. Pancreas: Moderately atrophic and grossly unremarkable. Adrenal glands: Unremarkable. Kidneys: The contrast enhanced kidneys demonstrate mild cortical atrophy and are without hydronephros is. The kidneys enhance symmetrically. A 6.3 cm cyst arises from the left kidney. A retroaortic left renal vein is incidentally noted. Abdominal vasculature: The abdominal aorta is normal in course and caliber noting advanced atheroscle rotic calcification. Bowel: There is moderate to advanced colonic diverticulosis without CT evidence of acute diverticulit is. A portion of the splenic flexure is located in the thorax and not visualized. No bowel obstructio n is seen. The appendix is well-visualized and normal. Peritoneum: There is no intraperitoneal free air or abdominal ascites. Lymphadenopathy: None. Pelvic viscera: The bladder is normal as visualized. The uterus is surgically absent. No adnexal lesi on is seen. Skeletal structures: The skeletal structures are osteopenic. There is a moderate chronic compression deformity of T12. Lumbosacral spondylosis is noted. No lytic or blastic lesions are seen. There are h ealed bilateral rib fractures. Arthritic change is seen in the hips. IMPRESSION: 1. No acute infectious or inflammatory findings are identified in the abdomen or pelvis. 2. Moderate to advanced colonic diverticulosis without CT evidence of acute diverticulitis. 3. There is marked elevation of the left hemidiaphragm with protrusion of abdominal contents into the left hemithorax. This is similar to previous. 4. Additional findings as above. ACT 112: Negative or not required by law. Electronically signed by: Karsten Alfaro M.D. 03/17/2021 7:17 AM
[2021-03-17 10:12] LABS: Hematocrit (blood only) 38.7 % (37-47); Hemoglobin 13.4 g/dL (12.0-16.0)
[2021-03-17] MEDS: ACETAMINOPHEN 325 MG TAB PO SCH ×3 (11:31→20:13)
[2021-03-17] MEDS ORDERED: ACETAMINOPHEN 325 MG TAB PO PRN (11:33)
[2021-03-17] MEDS ORDERED: LORazepam 1 MG TAB PO PRN (11:33)
[2021-03-17] MEDS ORDERED: ALBUTEROL HFA 8 GM INHALER INH PRN (11:44)
[2021-03-17] MEDS ORDERED: FLUTICASONE/VILANTEROL 100/25MCG 14 PUFFS/INHALER INH ONE (12:00)
[2021-03-17 12:37] LABS: Basophils # (auto) 0.03 K/uL (0-0.2); Basophils % (auto) 0.3 %; Eosinophils # (auto) 0.11 K/uL (0-0.5); Hematocrit (blood only) 38.1 % (37-47); Immature Granulocytes # (auto) 0.06 K/uL (0.00-0.02); Immature Granulocytes % (auto) 0.6 %; Lymphocytes # (auto) 2.03 K/uL (1.2-3.4); Mean Corpuscular Hemoglobin 32.5 pg (25-34); Mean Corpuscular Hgb Conc 34.1 g/dL (32-36); Mean Corpuscular Volume 95.3 fL (80-100); Mean Platelet Volume 9.9 fL (7.4-10.4); Monocytes # (auto) 0.67 K/uL (0.11-0.59); Monocytes % (auto) 6.3 %; Neutrophils # (auto) 7.76 K/uL (1.4-6.5); Neutrophils % (auto) 72.8 %; Platelet Count 256 K/uL (130-400); RDW Coefficient of Variation 12.7 % (11.5-14.5); RDW Standard Deviation 44.6 fL (36.4-46.3); White Blood Count 10.66 K/uL (4.8-10.8)
--- NOTE | 2021-03-17 13:13 | Gastrointestinal Consultation ---
Date of Consultation March 17, 2021 Assessment & Plan (1) Rectal bleeding: Patient is a 75 yo female with rectal bleeding. H/H within normal limits at present. CT shows severe diverticulosis. Suspect diverticular bleed. -Continue to monitor H/H. -If H/H drops significantly and/or bleeding persists, consider tagged RBC scan. In the event she has an active diverticular bleed that does not resolve on its own, would need to consider IR intervention as patient's anatomy is not amenable to colonoscopy. Supervising Physician Co-Signing Physician Notes Agree with JERAD Vargas as above Abd: Soft, NT, ND, +BS Hemodynamically stable at present Unable to perform a colonoscopy due to "frozen" pelvis, and therefore, agree with Bleeding scan versus CTA of the Abd/pelvis if bleeding continues If bleeding continues, may need IR versus surgical intervention. History of Present Illness Attending Physician: Shobha Yang, History of Present Illness Patient is a 75 yo female with PMH of diverticulosis, COPD, TISH, HTN, Polycythemia, eczema, & depression who presented to the ED at [facility] for complaints of rectal bleeding that began on the evening of 03/16/21. She reports multiple episodes of BRBPR. She denies associated abdominal pain or other GI symptoms. She has a history of severe diverticulosis. She had a colonoscopy in June 2020, unfortunately due to significant diverticulosis & frozen pelvis, the procedure was not able to be completed. She was advised to have a CT c olonography if she desired further colon cancer screening as you cannot navigate her colon with a colonoscope. She has not yet had this done. He most recent hemoglobin and hematocrit was obtained an hour prior to my evaluation and was noted to be within normal limits at 13/38.1. She has no other symptoms to report. No pertinent medical history. WBC count unremarkable. A Ct scan in the ED indicated severe diverticulosis without acute evidence of diverticulitis. Allergies Allergy/AdvReac Type Severity Reaction Status Date / Time No Known Allergies Allergy Verified 03/17/21 01:47 Home Medications Medication Instructions Recorded Confirmed Type Oxygen Home #1 ea 09/17/18 03/02/21 Rx docusate sodium 100 mg capsule 100 mg PO DAILY PRN #30 cap 05/04/20 03/17/21 Rx (Stool Softener) anastrozole 1 mg tablet 1 mg PO QAM 06/30/20 03/17/21 History aspirin 81 mg tablet,delayed 81 mg PO QAM 06/30/20 03/17/21 History release multivitamin (Multiple Vitamins) 1 tab PO QAM 06/30/20 03/17/21 History hydrochlorothiazide 12.5 mg tablet 12.5 mg PO QAM #90 tab 01/14/21 03/17/21 Rx albuterol sulfate 90 mcg/actuation 2 puff INH Q6H PRN #3 inhaler 01/28/21 03/17/21 Rx aerosol inhaler (ProAir HFA) escitalopram oxalate 20 mg tablet 40 mg PO QAM #90 tab 03/02/21 03/17/21 Rx (Lexapro) trazodone 50 mg tablet 50 mg PO HS #30 tab 03/02/21 03/17/21 Rx fluticasone 100 mcg-salmeterol 50 1 inh INHALATION BID #60 ea 03/16/21 03/17/21 Rx mcg/dose blistr powdr for inhalation (Advair Diskus) Patient History Medical History (Updated 03/02/21 @ 13:57 by Maeve Maya MD) Acquired elevated diaphragm Anxiety Chronic obstructive pulmonary disease inhalers daily; oxygen 2L at hs Depression Diverticular disease History of anemia History of anesthesia reaction after last colonoscopy 5yrs ago, had difficulty waking and had to have a breathing treatment in the recovery room History of bilateral breast cancer diagnosed 1999--left breast diagnosed--lumpectomy/radiation 2014--right breast diagnosed--bilt mastectomy/oral chemo On home oxygen therapy 2L at hs Osteoarthritis Restrictive lung disease Shortness of breath Surgical History H/O abdominal hysterectomy H/O bilateral mastectomy (~2014) @ [facility] History of arthroscopy of right knee History of bilateral tubal ligation History of colonoscopy History of left breast biopsy malignant History of lumpectomy of left breast (~1999) History of nasal polypectomy History of right breast biopsy malignant History of tooth extraction History of wisdom tooth extraction Family History Mother Pancreatitis Hypertension Sister Lung disease Family/Other Family history of diabetes mellitus Other No family history of adverse response to anesthesia Denies family history of Ovarian cancer Prostate cancer Myocardial infarction Breast cancer Colorectal cancer Social History Smoking Status: Never smoker Second Hand Exposure: Yes; Hx Alcohol Use: Yes Alcohol type: wine Alcohol Intake Frequency: 2-3 x/Week Hx Substance Use: No Preferred Language: Icelandic Communication Ability: Effective Hearing Ability: Normal Electrical Line Mechanic Required: No Beliefs That Will Affect Care: None marital status: / Current Living Situation: Alone current occupational status: retired Feels Safe at Home: Yes Safety Concerns: Feels Safe At This Time caffeine: Yes Dental Care, Regularly: Yes Physical Activity Frequency: 1-2 Times per Week Seatbelt Use: always Sunscreen Use: Yes Assistive Devices: Cane, Glasses and Oxygen - at Night Review of Systems Constitutional: no fever and no chills Respiratory: no cough and no dyspnea Cardiovascular: no chest pain Gastrointestinal: + blood in stools; no abdominal pain and no change in bowel habits Musculoskeletal: no problem reported Psychiatric: no problem reported Hematologic / Lymphatic: no unexplained weight loss Physical Exam Constitutional: WD/WN, vitals as above Respiratory: normal respiratory effort Cardiovascular: Rate/Rhythm: regular rate and regular rhythm Gastrointestinal (Abdomen): Inspection/Auscultation: abdomen normal to inspection Musculoskeletal: Head/Neck/Chest: normocephalic Psychiatric: Orientation: alert and oriented x 3 Results & Data ([facility]) Vital Signs (Past 12 Hours) Vital Signs Temp Pulse Pulse Resp BP Pulse Ox 03/17/21 11:33 36.9 C 77 16 147/69 H 98 03/17/21 09:00 86 16 139/76 96 03/17/21 07:17 99 H 17 144/83 H 99 03/17/21 01:53 82 82 18 154/80 H 97 PG Care Time/CCT Total # of Minutes Spent Total Time Spent with Patient: Total time spent is greater than 50% in coordination of care (as documented) at patient's floor/unit and/or counseling patient: Coding Level of Care Code 83135 Initial Inpt Care Lvl 3 Diagnoses Rectal bleeding K62.5
[2021-03-17] MEDS: ESCITALOPRAM OXALATE 20 MG TAB PO SCH (15:33)
[2021-03-17] MEDS: ANASTROZOLE 1 MG TAB PO SCH (15:33)
[2021-03-17] MEDS ORDERED: hydrALAZINE HCL 20 MG/ML VIAL IV PRN (16:15)
--- NOTE | 2021-03-17 17:22 | Communication Note ---
Date of Service: March 17, 2021 Agree with plan put in place by Dr. Yang. Added hydralazine 5 mg every 30 as needed for pressures greater than 180/110. GI to follow in place their r ecommendations.
--- NOTE | 2021-03-17 18:32 | Communication Note ---
Date of Service: March 17, 2021 Disregard n.p.o. after midnight instructions per my last note. At this time GI is recommending a bleeding scan if her bleeding persists or hemoglobin continues to drop. This does not require her to be n.p.o. She can continue clear liquids.
[2021-03-17 19:48] LABS: Basophils # (auto) 0.05 K/uL (0-0.2); Basophils % (auto) 0.5 %; Eosinophils # (auto) 0.13 K/uL (0-0.5); Eosinophils % (auto) 1.3 %; Hematocrit (blood only) 37.6 % (37-47); Hemoglobin 12.9 g/dL (12.0-16.0); Immature Granulocytes # (auto) 0.05 K/uL (0.00-0.02); Immature Granulocytes % (auto) 0.5 %; Mean Corpuscular Hemoglobin 32.7 pg (25-34); Mean Corpuscular Hgb Conc 34.3 g/dL (32-36); Mean Corpuscular Volume 95.4 fL (80-100); Mean Platelet Volume 10.1 fL (7.4-10.4); Monocytes # (auto) 0.79 K/uL (0.11-0.59); Monocytes % (auto) 7.9 %; Neutrophils # (auto) 6.96 K/uL (1.4-6.5); Neutrophils % (auto) 69.8 %; Platelet Count 249 K/uL (130-400); RDW Coefficient of Variation 12.7 % (11.5-14.5); Red Blood Count 3.94 M/uL (4.2-5.4); White Blood Count 9.98 K/uL (4.8-10.8)
--- NOTE | 2021-03-17 20:07 | Emergency Department Note ---
Impression & Plan Acute lower GI [facility] NAME: CHUCK MIGUEL AGE: 75 SEX: F ARRIVES VIA: Walk-In INFORMANT: Patient and family at the bedside ED PROVIDER(S): Wendy Caceres DO CHIEF COMPLAINT: Rectal bleeding PLAN: Disposition: Admit to the [facility] Condition: Stable MEDICAL DECISION MAKING: This is a 75-year-old female patient with significant GI bleeding. Upon standing, the patient had blood coming out of her. The patient had a similar episode months ago which was thought to be hemorrhoidal. The patient is hemodynamically stable. While here in the emergency department, the patient has had multiple episodes of bright red blood from her rectum into a depends. Triage Nursing notes reviewed and agree with them. Additional history obtained from family members at the bedside Prior medical records reviewed Vital Signs: reviewed and remarkable for mild hypertension Differential diagnosis: Diverticulitis, hemorrhoidal bleeding, lower GI bleeding ER treatment provided: Diagnostics interpreted by me: Laboratory studies: See below Imaging studies: As per stat rad CT abdomen and pelvis with contrast: Markedly elevated left hemidiaphragm. The entirety of the intra-abdominal contents are not imaged because of this. Sigmoid diverticulosis. No convincing evidence of acute diverticulitis. Normal appendix. Cyst in the liver. Gallbladder, pancreas, and spleen are unremarkable. Left renal cyst. No renal or ureteral stones. Atherosclerotic calcifications. Chronic compression deformity of T12. Cystic lesion in the right femoral head favored to represent a subchondral geode. HPI: 75/F arrives for evaluation of rectal bleeding. Patient explains that around 10:30 PM this evening she stood up and significant amount of bright red blood came from her rectum including blood clots. She does have a history of diverticulitis but has never had bright red rectal bleeding like this in the past. She did have an episode of some rectal bleeding a couple of months ago but it was not quite this brisk. She describes a history of right lower quadrant abdominal pain and pressure that has been ongoing for months but was not associated with GI bleeding. Patient did have an episode of dizziness in the waiting room. ROS: See above HPI for pertinent positives & negatives. A total of 10 systems reviewed and were otherwise negative. PAST MEDICAL HISTORY:See Below PAST SURGICAL HISTORY:See Below FAMILY HISTORY:See Below SOCIAL HISTORY:See Below HOME MEDICATIONS:See list ALLERGIES:None VITALS:See Below PHYSICAL EXAMINATION: HEENT: Head - normocephalic and atraumatic Pupils are equal, round, and reactive to light. Extraocular eye muscles are intact, and sclera are anicteric. Nose - moist nasal mucosa without discharge. Mouth - moist buccal mucosa. Oropharynx is nonerythematous and there is no tonsillar exudate or edema noted. Neck: Supple; no JVD Heart: Regular rate and rhythm. There is a normal S1 and S2 with no murmurs, clicks, or gallops appreciated. Lungs: Clear to auscultation bilaterally with no wheezes, rales, or rhonchi. Abdomen: Soft, completely nontender, nondistended, with good bowel sounds. There are no palpable pulsatile masses or hepatosplenomegaly. There is no guarding, rigidity, or rebound noted. Extremities: No evidence of cyanosis, clubbing, or edema. There are easily palpable peripheral pulses. Skin: Pale, warm and dry with good turgor and no rashes. ED COURSE: Times/Reassessments: 0230: The patient was evaluated in room C2. A complete history and physical was performed. Laboratory studies were drawn as above. Patient went for CT scan of the abdomen/pelvis as described above. A rectal exam was performed. I discussed the case with the [facility] hospitalist and they will evaluate for further management and discussed with GI. Patient had no further episodes of dizziness here in the emergency department. Wendy Caceres DO Past Med/Surg History Medical History (Updated 03/18/21 @ 09:42 by Wendy Caceres DO) Acquired elevated diaphragm Anxiety Chronic obstructive pulmonary disease inhalers daily; oxygen 2L at hs Depression Diverticular disease History of anemia History of anesthesia reaction after last colonoscopy 5yrs ago, had difficulty waking and had to have a breathing treatment in the recovery room History of bilateral breast cancer diagnosed 1999--left breast diagnosed--lumpectomy/radiation 2014--right breast diagnosed--bilt mastectomy/oral chemo On home oxygen therapy 2L at hs Osteoarthritis Restrictive lung disease Shortness of breath Surgical History H/O abdominal hysterectomy H/O bilateral mastectomy (~2014) @ [facility] History of arthroscopy of right knee History of bilateral tubal ligation History of colonoscopy History of left breast biopsy malignant History of lumpectomy of left breast (~1999) History of nasal polypectomy History of right breast biopsy malignant History of tooth extraction History of wisdom tooth extraction Family History Mother Pancreatitis Hypertension Sister Lung disease Family/Other Family history of diabetes mellitus Other No family history of adverse response to anesthesia Denies family history of Ovarian cancer Prostate cancer Myocardial infarction Breast cancer Colorectal cancer Social History Smoking Status: Never smoker Second Hand Exposure: Yes; Hx Alcohol Use: Yes Alcohol type: wine Alcohol Intake Frequency: 2-3 x/Week Hx Substance Use: No Preferred Language: Pashto Communication Ability: Effective Hearing Ability: Normal Straight Cutter Required: No Beliefs That Will Affect Care: None marital status: / Current Living Situation: Alone current occupational status: retired Feels Safe at Home: Yes caffeine: Yes Dental Care, Regularly: Yes Physical Activity Frequency: 1-2 Times per Week Seatbelt Use: always Sunscreen Use: Yes Assistive Devices: Cane, Glasses and Oxygen - at Night Allergies Allergies Allergy/AdvReac Type Severity Reaction Status Date / Time No Known Allergies Allergy Verified 03/17/21 01:47 Home Meds Home Medications Medication Instructions Recorded Confirmed anastrozole 1 mg tablet 1 mg PO QAM 06/30/20 03/17/21 aspirin 81 mg tablet,delayed 81 mg PO QAM 06/30/20 03/17/21 release multivitamin (Multiple Vitamins) 1 tab PO QAM 06/30/20 03/17/21 Previous Rx's Medication Instructions Recorded Oxygen Home #1 ea 09/17/18 docusate sodium 100 mg capsule 100 mg PO DAILY PRN #30 cap 05/04/20 (Stool Softener) hydrochlorothiazide 12.5 mg tablet 12.5 mg PO QAM #90 tab 01/14/21 albuterol sulfate 90 mcg/actuation 2 puff INH Q6H PRN #3 inhaler 01/28/21 aerosol inhaler (ProAir HFA) escitalopram oxalate 20 mg tablet 40 mg PO QAM #90 tab 03/02/21 (Lexapro) trazodone 50 mg tablet 50 mg PO HS #30 tab 03/02/21 fluticasone 100 mcg-salmeterol 50 1 inh INHALATION BID #60 ea 03/16/21 mcg/dose blistr powdr for inhalation (Advair Diskus) Results & Data (ED) Vital Signs Vital Signs - 24 hr 03/17/21 00:03 03/17/21 01:53 Temperature 36.4 C L Temperature Source Temporal Artery Scan Pulse Rate 88 82 Pulse Rate [Apical] 82 Pulse Rhythm Regular Pulse Rhythm [Apical] Regular Pulse Strength [Apical] Normal Respiratory Rate 18 18 Respiratory Effort / Characteristics Non-Labored Spontaneous Non-Labored Respiratory Depth Normal Normal Respiratory Pattern Regular Regular Blood Pressure 151/80 H Blood Pressure [Right Arm] 154/80 H Blood Pressure Mean 103 Blood Pressure Mean [Right Arm] 104 Blood Pressure Position [Right Arm] Lying Pulse Oximetry 97 97 Oxygen Delivery Method Room Air Nasal Cannula Oxygen Flow Rate 3 Sepsis Recent Fever Within 48 Hours No Sepsis New/Unexplained Change in Mental Status No Sepsis Action Taken by Nursing No Action Required Laboratory Data Result diagrams: 03/18/21 03:11 03/18/21 03:11 Lab Results 03/17/21 03/17/21 03/17/21 Range/Units 02:05 02:05 02:05 WBC 10.60 (4.8-10.8) K/uL RBC 4.36 (4.2-5.4) M/uL Hgb 14.5 (12.0-16.0) g/dL Hct 41.3 (37-47) % MCV 94.7 (80-100) fL MCH 33.3 (25-34) pg MCHC 35.1 (32-36) g/dL RDW Std Deviation 43.8 (36.4-46.3) fL RDW Coeff of Joseline 12.6 (11.5-14.5) % Plt Count 272 (130-400) K/uL MPV 9.8 (7.4-10.4) fL PT Cancelled INR Cancelled APTT Cancelled PTT Ratio Cancelled Sodium 130 L (136-145) mmol/L Potassium (3.5-5.1) mmol/L Chloride 96 L (98-107) mmol/L Carbon Dioxide 28 (21-32) mmol/L Anion Gap 6.0 (3-11) BUN 14 (7-18) mg/dl Creatinine 0.52 L (0.6-1.2) mg/dl Est Cr Clr Drug Dosing 79.5 ml/min Est GFR ( Amer) 109.1 ml/min Est GFR (Non-Af Amer) 94.1 ml/min BUN/Creatinine Ratio 27.3 H (10-20) Glucose 101 H (70-99) mg/dl Calcium 9.8 (8.5-10.1) mg/dl Total Bilirubin 0.3 (0.2-1) mg/dl AST (15-37) U/L ALT 23 (12-78) U/L Alkaline Phosphatase 82 (45-117) U/L Total Protein 7.4 (6.4-8.2) gm/dl Albumin 3.4 (3.4-5.0) gm/dl Globulin 4.0 (2.5-4.0) gm/dl Albumin/Globulin Ratio 0.9 (0.9-2) 03/17/21 03/17/21 Range/Units 03:11 03:11 WBC (4.8-10.8) K/uL RBC (4.2-5.4) M/uL Hgb (12.0-16.0) g/dL Hct (37-47) % MCV (80-100) fL MCH (25-34) pg MCHC (32-36) g/dL RDW Std Deviation (36.4-46.3) fL RDW Coeff of Joseline (11.5-14.5) % Plt Count (130-400) K/uL MPV (7.4-10.4) fL PT 9.6 INR 0.9 APTT 29.8 PTT Ratio 1.1 Sodium (136-145) mmol/L Potassium 3.3 L (3.5-5.1) mmol/L Chloride (98-107) mmol/L Carbon Dioxide (21-32) mmol/L Anion Gap (3-11) BUN (7-18) mg/dl Creatinine (0.6-1.2) mg/dl Est Cr Clr Drug Dosing ml/min Est GFR ( Amer) ml/min Est GFR (Non-Af Amer) ml/min BUN/Creatinine Ratio (10-20) Glucose (70-99) mg/dl Calcium (8.5-10.1) mg/dl Total Bilirubin (0.2-1) mg/dl AST 18 (15-37) U/L ALT (12-78) U/L Alkaline Phosphatase (45-117) U/L Total Protein (6.4-8.2) gm/dl Albumin (3.4-5.0) gm/dl Globulin (2.5-4.0) gm/dl Albumin/Globulin Ratio (0.9-2) Administered Medications Acetaminophen (Acetaminophen 325 Mg Tab) 650 mg PO Q6H [facility] Stop: 04/16/21 09:14 Last Admin: 03/18/21 08:36 Dose: 650 mg Documented by: [id number] Admin: 03/18/21 04:17 Dose: Not Given Documented by: [id number] Admin: 03/17/21 20:13 Dose: 650 mg Documented by: [id number] Admin: 03/17/21 15:34 Dose: Not Given Documented by: [id number] Admin: 03/17/21 11:31 Dose: 650 mg Documented by: [id number] Anastrozole (Anastrozole 1 Mg Tab) 1 [facility] Stop: 04/16/21 11:32 Last Admin: 03/18/21 08:36 Dose: 1 mg Documented by: [id number] Cosigned by: [id number] Admin: 03/17/21 15:33 Dose: 1 mg Documented by: [id number] Cosigned by: [id number] Escitalopram Oxalate (Escitalopram Oxalate 20 Mg Tab) 40 mg PO QAM [facility] Stop: 04/16/21 11:59 Last Admin: 03/18/21 08:37 Dose: 40 mg Documented by: [id number] Admin: 03/17/21 15:33 Dose: 40 mg Documented by: [id number] Fluticasone/Vilanterol (Fluticasone/Vilanterol 100/25mcg 14 Puffs/Inhaler) 1 puffs INH DAILY [facility] Stop: 04/17/21 08:59 Last Admin: 03/18/21 08:38 Dose: 1 puffs Documented by: [id number] Trazodone HCl (Trazodone Hcl 50 Mg Tab) 50 mg PO HS [facility] Stop: 04/16/21 20:59 Last Admin: 03/17/21 20:13 Dose: 50 mg Documented by: [id number] Discontinued Medications Fluticasone/Vilanterol (Fluticasone/Vilanterol 100/25mcg 14 Puffs/Inhaler) 1 puffs INH 1200 ONE Stop: 03/17/21 12:01 Last Admin: 03/17/21 15:34 Dose: 1 puffs Documented by: [id number] Ioversol (Optiray 320 100ml) 93 ml IV ONCE ONE Stop: 03/17/21 03:53 Last Admin: 03/17/21 03:52 Dose: 93 ml Documented by: [id number] Potassium Chloride (Potassium Chloride Crtab 20 Meq Tabcr) 40 meq PO NOW STA Stop: 03/17/21 06:31 Last Admin: 03/17/21 07:18 Dose: 40 meq Documented by: [id number] Discharge Plan Visit Data Chief Complaint: Rectal Bleed Stated Complaint: RECTAL BLEEDING ED Provider: Wendy Caceres Discharge Problem: Acute lower GI bleeding Patient Disposition: Admitted As Inpatient Discharge Instructions Interventions: ED Discharge Assessment Last Done: 03/17/21 10:20
[2021-03-17] MEDS ORDERED: traZODone HCL 50 MG TAB PO SCH (21:00)
[2021-03-18 03:29] LABS: Hematocrit (blood only) 35.3 % (37-47); Mean Corpuscular Hemoglobin 32.4 pg (25-34); Mean Corpuscular Volume 95.4 fL (80-100); Platelet Count 221 K/uL (130-400); RDW Coefficient of Variation 12.7 % (11.5-14.5); RDW Standard Deviation 44.3 fL (36.4-46.3); White Blood Count 10.01 K/uL (4.8-10.8)
[2021-03-18 03:43] LABS: Basophils # (auto) 0.07 K/uL (0-0.2); Basophils % (auto) 0.7 %; Eosinophils # (auto) 0.41 K/uL (0-0.5); Eosinophils % (auto) 4.1 %; Immature Granulocytes # (auto) 0.05 K/uL (0.00-0.02); Immature Granulocytes % (auto) 0.5 %; Lymphocytes # (auto) 3.45 K/uL (1.2-3.4); Lymphocytes % (auto) 34.5 %; Monocytes # (auto) 0.71 K/uL (0.11-0.59); Monocytes % (auto) 7.1 %; Neutrophils # (auto) 5.32 K/uL (1.4-6.5); Neutrophils % (auto) 53.1 %; RBC Morphology Unremarkable
[2021-03-18 03:48] LABS: BUN Creatinine Ratio 23.8 (10-20); Creatinine Clr Calc Pharmacy 86.2 ml/min; Est GFR (Non-African American) 96.6 ml/min; Potassium 3.6 mmol/L (3.5-5.1)
[2021-03-18] MEDS: ACETAMINOPHEN 325 MG TAB PO SCH ×3 (04:17→15:40)
[2021-03-18] MEDS: ANASTROZOLE 1 MG TAB PO SCH (08:36)
[2021-03-18] MEDS: ESCITALOPRAM OXALATE 20 MG TAB PO SCH (08:37)
[2021-03-18] MEDS ORDERED: FLUTICASONE/VILANTEROL 100/25MCG 14 PUFFS/INHALER INH SCH (09:00)
--- NOTE | 2021-03-18 10:45 | Gastroenterology Progress Note ---
Date of Service March 18, 2021 Assessment & Plan (1) Acute lower GI bleeding: (2) Diverticulosis: Plan: Patient has suspected diverticular bleed. Her hemoglobin is normal and she has had resolution of her GI bleeding. Ok to advance diet. Would advise a home regimen of Citrucel or Benefiber daily to help encourage more complete evacuation. If needed, can add Miralax daily as well. If bleeding returns, consider tagged RBC scan vs CTA. Due to frozen pelvis, if experiencing bleeding that won't stop, she would need IR or surgical intervention as she cannot have a colonoscopy. Admission and Anticipated Discharge Date Admission Date: March 17, 2021 Supervising Physician Co-Signing Physician Notes Agree with JERAD Vargas as above Abd: Soft, NT, ND, +BS No further overt GI bleeding Continue current therapy and supportive care Subjective Patient is a 75 yo female with rectal bleeding and suspected diverticular bleeding. She reports resolution of rectal bleeding since being admitted. Hemoglobin is within normal limits. She denies abdominal pain. She does acknowledge that she is not taking a fiber supplement and does not completely evacuate her bowels. Review of Systems Constitutional: no fever and no chills Respiratory: no cough and no dyspnea Cardiovascular: no chest pain Gastrointestinal: + constipation (moves bowels daily but doesn't completely evacuate); no abdominal pain and no blood in stools Physical Exam Constitutional: well developed Respiratory: normal respiratory effort Gastrointestinal (Abdomen): normal bowel sounds, soft, nontender, no hepatosplenomegaly Results & Data Results & Data ([facility]) Vital Signs (Past 12 Hours) Vital Signs Temp Pulse Resp BP Pulse Ox 03/18/21 10:29 36.5 C 76 16 166/72 H 93 03/18/21 07:29 36.4 C L 78 16 146/79 H 96 03/18/21 03:34 36.8 C 77 24 165/77 H 97 03/17/21 23:37 36.9 C 79 20 164/83 H 96 PG Care Time/CCT Total # of Minutes Spent Total Time Spent with Patient: Total time spent is greater than 50% in coordination of care (as documented) at patient's floor/unit and/or counseling patient: Coding Level of Care Code 59422 Subseq Hosp Care Lvl 3 Diagnoses Acute lower GI bleeding K92.2 Diverticulosis K57.90
[2021-03-18 11:18] LABS: Basophils # (auto) 0.07 K/uL (0-0.2); Basophils % (auto) 0.7 %; Eosinophils # (auto) 0.24 K/uL (0-0.5); Eosinophils % (auto) 2.4 %; Hematocrit (blood only) 35.2 % (37-47); Hemoglobin 11.9 g/dL (12.0-16.0); Immature Granulocytes # (auto) 0.05 K/uL (0.00-0.02); Immature Granulocytes % (auto) 0.5 %; Lymphocytes # (auto) 2.18 K/uL (1.2-3.4); Mean Corpuscular Hemoglobin 32.3 pg (25-34); Mean Corpuscular Hgb Conc 33.8 g/dL (32-36); Mean Corpuscular Volume 95.7 fL (80-100); Mean Platelet Volume 9.9 fL (7.4-10.4); Monocytes # (auto) 0.82 K/uL (0.11-0.59); Monocytes % (auto) 8.3 %; Neutrophils # (auto) 6.57 K/uL (1.4-6.5); Neutrophils % (auto) 66.1 %; Platelet Count 215 K/uL (130-400); RDW Coefficient of Variation 12.6 % (11.5-14.5); RDW Standard Deviation 44.1 fL (36.4-46.3); Red Blood Count 3.68 M/uL (4.2-5.4); White Blood Count 9.93 K/uL (4.8-10.8)
--- NOTE | 2021-03-18 16:28 | Discharge Summary ---
Date of Service March 18, 2021 Admission HPI Per Admitting Provider Tasha Alonso is a pleasant 75yo female presenting with rectal bleeding. She reports copious bright red blood per rectum with passage of clots ongoing since last night (03/16/21) around 22:30. She has some mild lower abdominal discomfort and feeling of rectal pressure. Denies nausea, vomiting, fever, chills. Denies chest pain, palpitations, dizziness, SOB. She has been using pads to catch the bleeding - reported to have filled 3 pads in the ER. No additional complaints at this time. Patient had rectal bleeding in the past. Was seen by GI. Had a CT of the abdomen with PO and IV contrast which showed extensive colonic diverticulosis without acute diverticulitis. Patient states that this current bleeding is more severe than her prior episode. Afebrile. HD stable. Hgb=14.5 (down from prior value of 16.2 in 10/2020) ER Course: KCL 40mEq Principal Diagnosis GI bleed Discharge Exam Constitutional well developed and well nourished; no acute distress Eyes + anicteric sclerae Neck normal visual inspection and trachea midline Respiratory normal respiratory effort, lungs clear to auscultation Cardiovascular RRR, no murmur, no edema Gastrointestinal (Abdomen) Inspection/Auscultation: abdomen normal to inspection Percussion/Palpation: abdomen soft; abdomen nontender Neurologic moves all extremities Psychiatric A+Ox3, euthymic affect Discharge Data Allergies Allergy/AdvReac Type Severity Reaction Status Date / Time No Known Allergies Allergy Verified 03/17/21 01:47 Consultations 03/17/21 06:06 ED Decision to Admit Stat 03/17/21 06:30 Consult Gastroenterology Routine Ordered Studies 03/17/21 03:01 CT abd pelvis IV con only Urgent Hospital Course (1) Acute lower GI bleeding: (1) Rectal bleeding: Plan: 75yo female with history of diverticulosis presenting with rectal bleeding, ongoing since 03/16 patient reports copious blood loss with passage of clots. She is on ASA daily, otherwise no blood thinners. HD stable. Hbg 12. No symptoms of anemia present. -Suspected diverticular bleed. Also may consider hemorrhoid, colitis, AVM -Observation to medical with telemetry -Placed on clear liquids throughout stay and advance to regular diet prior to discharge. -Hold ASA until follow-up with PCP -GI consultation appreciated-recommended conservative management and at this time and Benefiber on discharge. -GI bleed resolved on own, follow-up with PCP within 1 week. (2) Restrictive lung disease: Plan: Patient denies worsening SOB. -Continue supplemental O2 as needed -Continue Advair at home dosage -Albuterol PRN -Patient discharged well on room air and saturating well (3) Hypertension: Plan: Blood pressure stable -Hydrochlorothiazide was withheld due to hypokalemia, can continue at discharge. -Monitor BP (4) Depression: Plan: Chronic. Stable -Continue Escitalopram 40mg po qAM -Continue Trazodone as needed for sleep (5) Breast cancer: Plan: Noted -Continue Anastrozole (2) Diverticulosis: (3) Restrictive lung disease: (4) Breast cancer: (5) Hypertension: (6) Depression: Total Time Total Time Spent Total Time Spent (In Minutes): 30 Discharge Plan Discharge Items Patient Disposition: Home - Self-Care Reason For Visit: RECTAL BLEED Discharge Diagnosis: GI Bleed Activity: Per Instructions section Non-emergency contact: Primary Care Provider Call non-emergency contact if: you have any medication questions and your symptoms worsen Follow-up/Referrals: Maeve Maya MD [Primary Care Provider] - Diet: Regular Addtl Attending Provider Instructions: Not take him this were seen in the hospital for GI bleed. You came to the emergency room after seeing profuse bleeding per rectum with multiple clots. You were placed on bowel rest in order for your GI bleed to heal on its own. Gastroenterology was placed on consult and saw you in the hospital and agreed with our recommendations. After 48 hours of being in the hospital your GI bleed resolved on its own. You did not require any blood products while you are in the hospital and your hemoglobin remained relatively normal throughout your stay. Prior to your discharge we advanced your diet to regular foods to see how you would tolerate them and after this you were discharged from the hospital. Other recommendations that were made include taking home regimen of Citrucel or Benefiber daily to help encourage more complete evacuation. Additionally when you came to the hospital your hydrochlorothiazide was placed on hold as you had low potassium. Upon discharge you may continue taking the hydrochlorothiazide per usual. Your aspirin was also discontinued, however, we recommend that you for 1 week it until you follow-up with your PCP for your hospital visit. It was a pleasure to be a part of your care and we wish you the best in your recovery. Pending Studies at Discharge: No Stand-Alone Forms: [facility], Smoking Cessation Medications and DC Order Prescriptions: Continued docusate sodium [Stool Softener] 100 mg capsule 100 mg PO DAILY PRN (Reason: constipation) Qty: 30 RF: 0 hydrochlorothiazide 12.5 mg tablet 12.5 mg PO QAM Qty: 90 RF: 1 albuterol sulfate [ProAir HFA] 90 mcg/actuation HFA aerosol inhaler 2 puff INH Q6H PRN (Reason: shortness of breath or wheezing) Qty: 3 RF: 0 fluticasone propion-salmeterol [Advair Diskus] 100-50 mcg/dose blister with device 1 inh inhalation BID Qty: 60 RF: 2 (DME) Oxygen Home Liters Per Minute See Dose Instructions .ROUTE .MEDSUPPLY Qty: 1 RF: 0 escitalopram oxalate [Lexapro] 20 mg tablet 40 mg PO QAM Qty: 90 RF: 1 trazodone 50 mg tablet 50 mg PO HS Qty: 30 RF: 2 multivitamin [Multiple Vitamins] tablet 1 tab PO QAM RF: 0 anastrozole 1 mg tablet 1 mg PO QAM RF: 0 Discontinued aspirin 81 mg tablet,delayed release (DR/EC) 81 mg PO QAM RF: 0 Discharge Orders: Discharge Order (Routine); Ordered 03/18/21 Ordered By: Thomas Blood Admission Data Admit Date/Time: 03/17/21 06:30 Attending Provider: Jeremie Gross Admit Provider: Shobha Yang Primary Care Provider: Maeve Maya Other Providers: Samm Donis ; Shobha Yang Other Interventions: Discharge Summary Assessment (RN) Last Done: 03/18/21 16:56 Supervising Physician Co-Signing Physician Notes Patient seen and examined with PGY 1 Dr. Blood. Agree with history, exam findings, assessment and plan of care as outlined. In brief, Ms. Alonso is a 75 year old female with history of diverticulosis admitted with rectal bleeding. Hgb 12 on admission. Today, feels well. Eager to be discharged. Has not had a bowel movement or blood per rectum. No abdominal pain. VS and nursing notes reviewed. Well appearing. Heart with regular rate and rhythm. No edema. Abdomen soft, nontender. Labs and imaging reviewed. 1. Rectal bleeding. ?diverticular bleeding. Hemoglobin has been stable. 2. Restrictive lung disease. Continue home Advair, albuterol 3. HTN. Holding HCTZ for now. Restart at discharge. 4. Depression. Continue escitalopram and trazodone. Dispo: discharge home today. Follow up with PCP in 1 week. I personally spent 25 minutes discharge planning for this patient. Resident Activity Tracking Resident Involvement: Resident Care Provided Care Provided: Adult Hospital Medicine
== END 2021-03-18 18:09 | disposition home or self-care (01) ==
LOC: ED 23:52 → EDINP 23:52 → SUATTDRO 03-17 06:30 → 2S 03-17 10:20